=== PATIENT | female | born 1970 | race Caucasian/White ===

== ENCOUNTER → 2024-10-07 | Outpatient (CLI) | payer MEDICARE, MEDICAID, SELFPAY ==
--- NOTE | 2024-10-07 11:00 | XR_ITS ---
Examination: PA lateral chest 2 views TECHNIQUE: Upright PA lateral chest 2 views Exam date and time: October 07, 2024 1105 hours INDICATIONS: Coughing congestion beginning 3 weeks ago. FINDINGS: Normal heart size No pneumonia or pulmonary edema Moderate osteopenia IMPRESSION: No current pneumonia
== END | disposition home or self-care (01) ==
LOC: CDIM 10:56
PROVIDERS: PCP Family Medicine; Referring Provider Nurse Practitioner Family; Visit Provider Nurse Practitioner Family
DX: R05.9 Cough, unspecified (principal); R09.89 Other specified symptoms and signs involving the circulatory and respiratory systems; J44.1 Chronic obstructive pulmonary disease with (acute) exacerbation
CPT/HCPCS: 71046

== ENCOUNTER 2024-12-27 10:28 | Outpatient (RCR) | payer MEDICARE, MEDICAID, SELFPAY ==
--- NOTE | 2024-12-27 13:23 | CTCFLWUP_ITS ---
Patient: JOSSIE COCHRAN : 1970 Page 2 of 2 FOLLOW UP NOTE DATE OF SERVICE: 12/27/2024 NAME: JOSSIE COCHRAN ACCOUNT: [id number] : 1970 AGE: 54 INTERVAL HISTORY: No new complains ONCOLOGY HISTORY: DIAGNOSIS: Toxic liver disease with hepatitis, not elsewhere classified [ICD10] K71.6 HISTORY OF PRESENT ILLNESS: PREVIOUS NOTE: Jossie Cochran is a 54-year-old ENG speaking female with history of [place], cirrhosis of the liver, hepatomegaly and splenomegaly is referred to hematology clinic for thrombocytopenia. Ms. Cochran also gets followed at [facility] for her cirrhosis of the liver. Ms. Cochran was initially informed about thrombocytopenia about 2 years ago. According to Ms. Cochran she never had significant nosebleeds, gum bleeds or blood in the urine or stool. 03/05/2018: Hepatitis panel negative. 09/27/2018: Platelet count 88,000, WBC 5.7, ANC 3.6, hemoglobin 14.8, MCV 87. 04/20/2019: Platelet count 104,000, WBC 5.1, ANC 3.0, hemoglobin 13.6, MCV 92. 05/31/2020: Platelet count 113,000, WBC 5.3, ANC 3.4, hemoglobin 14.2, MCV 88. 05/20/2021: Platelet count 100,000, WBC 5.4, ANC 3.6, hemoglobin 14.1 02/27/2022: CT scan of the abdomen and pelvis with and without contrast 06/01/2022: Platelet count 89,000, WBC 7.0, ANC 4.8, hemoglobin 13.2. 01/09/2023: Colonoscopy screening, hemorrhoids, repeat in 5 to 10 years, Dr. Lin, GI 06/18/2023: Platelet count 83,000, WBC 4.1, ANC 2.6, hemoglobin 14.9, MCV 90. 02/12/2024: Platelet count 88,000, WBC 3.0, ANC 1.8, hemoglobin,12.7 MCV 85 08/19/2024: Platelets 91,000, WBC 3.8, ANC 2.4, hemoglobin 13.5, MCV 92 OTHER MEDICAL HISTORY/CONDITIONS: DM 24YRS TOTAL HIGH CHOLESTEROL BIPOLAR 1989 NON-ALCOHLIC CIRRHOSIS 2006 HYSTERECTOMY 2010 CHOLECYSTECTOMY 1999 FAMILY HISTORY: Patient?denies?family?cancer?history. 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 albuterol - 90 mcg/actuation As directed 2. AnafraniL - 50 mg 2 Capsule Daily 3. aspirin - 81 mg 1 tab Daily 4. atorvastatin - 80 mg 1 tab Daily 5. buPROPion HCl - 100 mg 1 tab Daily 6. Claritin - 10 mg 1 tab Daily 7. cloZAPine - 100 mg 2 tab Daily 8. docusate sodium - 100 mg 1 tab Daily 9. lactulose - 10 gram/15 mL (15 mL) As directed 10. lisinopril - 10 mg 1 tab Daily 11. lithium carbonate - 300 mg 1 tab Twice a Day 12. loratadine - 10 mg 1 tab Daily 13. PriLOSEC - 20 mg 1 Capsule Daily 14. propranolol - 10 mg 2 tab Daily 15. sertraline - 100 mg 1 tab Daily 16. Singulair - 10 mg 1 tab Daily 17. Trelegy Ellipta - 100-62.5-25 mcg 1 As directed Medications Last Reconciled by Kari Erickson MA on 12/27/2024 ALLERGIES: erythromycin REVIEW OF SYSTEMS: A complete 14-point review of systems was performed and is negative except as noted in interval history. PHYSICAL EXAMINATION: VITAL SIGNS: PAIN: 0 - No pain ECOG Performance Status: 0 - Asymptomatic and fully active GENERAL APPEARANCE: Appears well, in no apparent distress, appropriately interactive. HEENT: Normocephalic, no temporal wasting, normal conjunctiva, no scleral icterus, normal hearing, lips without lesions, neck normal range of motion. CARDIOVASCULAR: Not assessed. PULMONARY: Normal respiratory effort, no respiratory distress or use of accessory muscles, speaking in full sentences, no tachypnea. EXTREMITIES: No pedal edema or cyanosis. SKIN: Normal skin appearance. NEUROLOGIC: Alert and oriented x4. PSHYCHIATRIC: Appropriate affect, mood normal, behavior normal, intact thought and speech. 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 I spent a total of 50 minutes on this patient?s care on the day of their visit excluding time spent related to any billed procedures. This time includes time spent with the patient as well as time spent documenting in the medical record, reviewing patients records and tests, obtaining history, placing orders, communicating with other healthcare professionals, counseling the patient, family or caregiver, and/or care coordination for the diagnoses above. Electronically Signed by: Ruiz Llamas MD T: 1:21 PM CC: PCP: Rios Vyas Referring: Rios Vyas This document was completed utilizing speech recognition software. Grammatical errors, random word insertions, pronoun errors, and incomplete sentences are an occasional consequence of this system due to software limitations, ambient noise, and hardware issues. Any formal questions or concerns about the content, text or information contained within the body of this dictation should be directly addressed to the provider for clarification.
== END 2025-01-14 23:59 | disposition home or self-care (01) ==
LOC: SCTC 10:28
PROVIDERS: PCP Family Medicine; Referring Provider Family Medicine; Visit Provider Internal Medicine Hematology & Oncology
DX: D69.6 Thrombocytopenia, unspecified (principal)
CPT/HCPCS: 99212; G0463

== ENCOUNTER 2025-01-30 18:17 | Inpatient (IN) | payer MEDICARE, MEDICAID, SELFPAY ==
--- NOTE | 2025-01-30 18:27 | XR_ITS ---
Examination: CT brain head without contrast. 2-D sagittal coronal reconstructions Date and time of exam:January 30, 2025 at 1831 hrs. Indications: Stroke alert, onset focal neurologic deficit today CTDI: vol (mGy):50.6 DLP: (mGycm):1039 Technique: Multiple CT axial sections of the brain have been obtained, 5 mm slice thickness. Contrast has not been administered. 2-D sagittal, coronal reconstructions have been obtained Low dose protocols were performed. One or more of the following dose reduction techniques were used; automated exposure control, adjustment of the mA and/or KV according to patient size, use of iterative reconstruction technique. Findings: No significant ventricular enlargement. Intra-axial or extra-axial hemorrhage density is not seen. No mass effect or midline shift Basal cisterns are not remarkable. Fourth ventricle is midline. Cranial vault intact. Impression: Negative for acute hemorrhage, mass effect or midline shift As clinically warranted, brain MRI follow-up would best assess for demyelinating disease, acute ischemic change
[2025-01-30 18:43] VITALS: PULSE 98
--- NOTE | 2025-01-30 18:43 | EKG_ITS ---
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
--- NOTE | 2025-01-30 18:43 | XR_ITS ---
Examination: CTA carotids with intravenous contrast CTA brain, head with intravenous contrast. 2-D sagittal, coronal reconstructions. 3-D reconstructions. Exam date and time: January 30, 2025 1932 hrs. Indications: Stroke alert today, onset altered mental status beginning this morning CTDI: vol (mGy) 26.2 DLP: (mGycm) 452 Technique: Multiple CTA axial brain, head carotid images post intravenous contrast injection 75 cc, Isovue-370. 2-D sagittal, coronal reconstructions. 3-D reconstructions, 3-D post processing including vascular maximum intensity projection images. Low dose protocols were performed. One or more of the following dose reduction techniques were used; automated exposure control, adjustment of the mA and/or KV according to patient size, use of iterative reconstruction technique. Findings: Mild enlargement right thyroid lobe No thoracic aortic aneurysm dilatation Main pulmonary artery segment 30 mm No visualized pulmonary artery filling defects Soft parenchymal opacity in the right upper lobe axial image 213, consider pneumonia No common carotid carotid bifurcation or internal carotid artery significant stenoses Dominant left vertebral artery with no critical stenoses Intracranial vertebral arteries basilar artery posterior cerebral branches fill with no large vessel occlusions Juxtasellar supraclinoid portions of the internal carotid arteries do not exhibit significant calcification no stenoses M1 segments middle cerebral arteries middle cerebral artery trifurcation vessels anterior cerebral arteries demonstrate no large vessel occlusions or thrombus Impression: Suspicious for mild pneumonia right upper lobe No significant neck arterial stenoses No cerebral large vessel arterial occlusions or thrombus
--- NOTE | 2025-01-30 18:48 | PD.TNEURO ---
Tele Neuro Consultation Consultation Date 01/30/25 Consultation Narrative [facility] Consult [facility] Patient Name:???Jossie Caro Date of :???1970 Date of Service:???01/30/2025 18:24:47 Diagnosis:?G93.49 - Encephalopathy Multifactorial Impression: ?1. Altered Mental Status and Dysarthria: ? - Admit for further workup ? - Order lab works (CBC, CMP, UA, UDS, TSH, LDL, A1C) ? - Order vessel imaging: CTA or MRA of head and neck ? - Order 2D echocardiogram if not completed within the last 3 months ? - Consult PT, OT, and ORCHESTRA TEACHER for rehab potential ? - Maintain euthymia, euglycemia, eunatremia, and euvolemia ? - Monitor for any changes in neurological status ? ?2. History of Cerebrovascular Accident (CVA): ? - Continue aspirin for secondary stroke prevention ? - Re-initiate statin therapy if not currently taking ? - Maintain normal blood pressure; no need for permissive hypertension ? ?3. Bipolar Disorder: ? - Maintain current psychiatric medications (not specified in transcript) ? - Monitor for any changes in mood or behavior during admission ? ?Note: 54-year-old female with history of CVA and bipolar disorder presenting with 2-3 day history of confusion, slurred speech, and leaning to the left. On examination, no focal neurological deficits were appreciated. Low suspicion for a new vascular etiology or acute stroke. Our recommendations are outlined below. Recommendations: ? Stroke/Telemetry Floor ? Neuro Checks ? Bedside Swallow Eval ? DVT Prophylaxis ? IV Fluids, Normal Saline ? Head of Bed 30 Degrees ? Euglycemia and Avoid Hyperthermia (PRN Acetaminophen) Sign Out: ? Discussed with Emergency Department Provider Advanced Imaging: Advanced Imaging Deferred because: Non-disabling symptoms as verified by the patient; no cortical signs so not consistent with LVO Metrics: Last Known Well: Unknown Dispatch Time: 01/30/2025 18:24:47 Arrival Time: 01/30/2025 18:27:00 Initial Response Time: 01/30/2025 18:25:22Symptoms: confusion, slurred speech, and leaning towards the left. Initial patient interaction: 01/30/2025 18:33:29 NIHSS Assessment Completed: 01/30/2025 18:36:35Patient is not a candidate for Thrombolytic. Thrombolytic Medical Decision: 01/30/2025 18:38:14Patient was not deemed candidate for Thrombolytic because of following reasons: LKW outside 4.[address] head showed no acute hemorrhage or acute core infarct. Primary Provider Notified of Diagnostic Impression and Management Plan on: 01/30/2025 18:45:47 History of Present Illness:Patient is a 54 year old Female. Patient was brought by private transportation with symptoms of confusion, slurred speech, and leaning towards the left. Patient is a 54-year-old woman presenting with a 2-3 day history of confusion, slurred speech, and leaning towards the left. The patient has a history of CVA (cerebrovascular event) last year and bipolar disorder. The patient reports that her symptoms started approximately 2-3 days ago and have been persistent since onset. She denies any recent illnesses, ill contacts, or changes in her medications. Past Medical History: ?Hyperlipidemia ?Stroke Medications: No Anticoagulant use? Antiplatelet use:?Yes?ASA 81mg Reviewed EMR for current medications Allergies:? Reviewed Social History: Smoking: Former Alcohol Use: No Drug Use: No Family History: There is no family history of premature cerebrovascular disease pertinent to this consultation ROS : 14 Points Review of Systems was performed and was negative except mentioned in HPI. Past Surgical History: There Is No Surgical History Contributory To Today?s Visit Examination: BP(133/86),?Pulse(91), 1A: Level of Consciousness - Alert; keenly responsive?+ 0 1B: Ask Month and Age - Both Questions Right?+ 0 1C: Blink Eyes & Squeeze Hands - Performs Both Tasks?+ 0 2: Test Horizontal Extraocular Movements - Normal?+ 0 3: Test Visual Wesley - No Visual Loss?+ 0 4: Test Facial Palsy (Use Grimace if Obtunded) - Normal symmetry?+ 0 5A: Test Left Arm Motor Drift - No Drift for 10 Seconds?+ 0 5B: Test Right Arm Motor Drift - No Drift for 10 Seconds?+ 0 6A: Test Left Leg Motor Drift - No Drift for 5 Seconds?+ 0 6B: Test Right Leg Motor Drift - No Drift for 5 Seconds?+ 0 7: Test Limb Ataxia (FNF/Heel-Winston) - No Ataxia?+ 0 8: Test Sensation - Normal; No sensory loss?+ 0 9: Test Language/Aphasia - Normal; No aphasia?+ 0 10: Test Dysarthria - Mild-Moderate Dysarthria: Slurring but can be understood?+ 1 11: Test Extinction/Inattention - No abnormality?+ 0 NIHSS Score:?1 NIHSS Free Text :?Stable station, stance and gait Pre-Morbid Modified Mayank Scale:0 Points = No symptoms at all Spoke with :?Dr. Schulz This consult was conducted in real time using interactive audio and video technology. Patient was informed of the technology being used for this visit and agreed to proceed. Patient located in hospital and provider located at home/office setting. Patient is being evaluated for possible acute neurologic impairment and high probability of imminent or life-threatening deterioration. I spent total of 35 minutes providing care to this patient, including time for face to face visit via telemedicine, review of medical records, imaging studies and discussion of findings with providers, the patient and/or family. Dr Hiram Marshall [facility] For Inpatient follow-up with [facility] physician please call [facility] at . As we are not an outpatient service for any post hospital discharge needs please contact the hospital for assistance. If you have any questions for the [facility] physicians or need to reconsult for clinical or diagnostic changes please contact us via [facility] at .
[2025-01-30 18:50] VITALS: BP 111/74; PULSE 97; RESP 18; TEMP 37.1; O2SAT 98
[2025-01-30 18:52] VITALS: BMI 34.9
[2025-01-30 18:57] LABS: Basophils % (Auto) 1 % (0-2.5); Eosinophils # (Auto) 0.1 Thou/mm3 (0.0-0.5); Eosinophils % (Auto) 3 % (0-10); Hematocrit 40.8 % (36.0-46.0); Hemoglobin 13.2 g/dL (12.0-16.0); Immature Granulocytes % (Auto) 0 % (0-0); Immature Granulocytes Auto 0.01 Thou/mm3 (0.00-0.00); Lymphocytes % (Auto) 22 % (10-50); Mean Corpuscular HGB Conc 32.4 g/dl (31.0-37.0); Mean Corpuscular Hemoglobin 27.6 pg (25.0-35.0); Mean Corpuscular Volume 85 fL (80-100); Monocytes # (Auto) 0.2 Thou/mm3 (0.0-0.8); Monocytes % (Auto) 5 % (0-12); Neutrophils % (Auto) 69 % (37-80); Nucleated Red Blood Cell % 0 /100 WBC (0); Platelet Count 97 Thou/mm3 (140-440); RDW Standard Deviation 43.2 fL (36.4-46.3); Red Blood Count 4.79 Miln/mm3 (4.00-5.20); White Blood Count 4.4 Thou/mm3 (3.6-11.0)
[2025-01-30 19:11] LABS: Partial Thromboplastin Time 27.6 Seconds (22.0-36.0); Prothrombin Time 11.4 Seconds (9.0-12.2)
[2025-01-30 19:18] LABS: B-Type Natriuretic Peptide < 20 pg/mL (0-100)
[2025-01-30 19:21] LABS: Alanine Aminotransferase 40 U/L (10-49); Albumin, Serum 4.7 gm/dL (3.5-5.0); Alcohol, Blood Medical < 10.0 mg/dL (0-10.0); Alkaline Phosphatase 109 U/L (46-116); Anion Gap 10 (7-16); Aspartate Amino Transferase 31 U/L (0-34); BUN/Creatinine Ratio 10 Ratio (12-20); Bilirubin,Total 0.5 mg/dL (0.3-1.2); Blood Urea Nitrogen 12 mg/dL (9-23); Calcium 10.4 mg/dL (8.3-10.6); Calcium (Corrected) 10.4 mg/dL (8.5-10.1); Carbon Dioxide 25.8 mMol/L (20.0-31.0); Chloride 98 mMol/L (98-107); Creatinine (Component) 1.2 mg/dL (0.6-1.3); Estimated Creatinine Clearance 62.6 mL/min (>60); Globulin 2.4 gm/dL (2.3-3.5); Glucose 295 mg/dL (74-106); Magnesium 1.6 mg/dL (1.6-2.6); Osmolality,Calculated 278 (275-295); Potassium 3.6 mMol/L (3.4-5.1); Sodium 134 mMol/L (136-145); Total Protein 7.1 gm/dL (5.7-8.2); Troponin I < 0.002 ng/mL (0.0-0.045); eGFR 54 See Note
[2025-01-30 20:03] VITALS: BP 141/79; PULSE 96; PULSE 97; RESP 18; RESP 97; TEMP 37; O2SAT 97
--- NOTE | 2025-01-30 20:04 | PD.EDAMS ---
Altered Mental Status RME/HPI General Chief Complaint: Altered Mental Status Stated Complaint: FEELING OFF, CONFUSED Time Seen by Provider: 01/30/25 18:43 Source: patient and family Arrival date/time: 01/30/25 18:17 Mode of arrival: ambulatory Limitations: no limitations RME / HPI RME / HPI narrative: Dr. Xie?s Main ED Evaluation: 54-year-old female with a history of cerebrovascular accident (CVA) last year and bipolar disorder presents with a 2-3 day history of confusion, slurred speech, and leftward leaning. Symptoms have been persistent since onset, without improvement. She denies recent illness, exposure to sick contacts, or any changes in her medication regimen. Patient reports 3 prior episodes of stroke and comes in for further evaluation. Related Data Home Medications ?Medication ?Instructions ?Recorded ?Confirmed blood sugar diagnostic (True 05/20/21 01/08/23 Metrix Glucose Test Strip) clozapine 100 mg tablet 200 mg PO DAILY 05/20/21 11/15/23 fluticasone furoate 100 2 inh inhalation [id number] PRN 05/20/21 01/08/23 mcg-vilanterol 25 mcg/dose Shortness Of Breath inhalation powder (Breo Ellipta) insulin aspart U-100 100 unit/mL 15 unit subcut DAILY 05/20/21 01/08/23 (3 mL) subcutaneous pen (Novolog FlexPen U-100 Insulin aspart) Held on 11/30/23. Instructions: Resume on 12/10/23. until seen by pcp albuterol sulfate 90 mcg/actuation 2 puff inhalation QID PRN Wheezing 05/03/22 01/08/23 aerosol inhaler clomipramine 75 mg capsule 75 mg PO DAILY 05/03/22 01/08/23 empagliflozin 25 mg-metformin ER 1 tab PO BID 05/03/22 01/08/23 1,000 mg tablet,extended release 24hr (Synjardy XR) semaglutide 0.25 mg or 0.5 mg (2 1 mg subcut QWEEK 05/03/22 01/08/23 mg/1.5 mL) subcutaneous pen injector (Ozempic) Held on 11/30/23. Instructions: Resume on 12/10/23. until seen by pcp lithium carbonate 300 mg 600 mg PO HS 01/07/23 01/08/23 tablet,extended release Previous Rx's ?Medication ?Instructions ?Recorded amiloride 5 mg tablet 5 mg PO QDAY #14 tabs 11/30/23 aspirin 81 mg tablet,delayed 81 mg PO QDAY cva #30 tabs 11/30/23 release atorvastatin 80 mg tablet 80 mg PO QPM CVA #30 tabs 11/30/23 insulin glargine 100 unit/mL (3 20 unit (0.2 mL) subcut BID dm #15 11/30/23 mL) subcutaneous pen (Lantus mL Solostar U-100 Insulin) lactulose 10 gram/15 mL oral 20 ml PO QDAY cirrhosis #473 mL 11/30/23 solution rifaximin 550 mg tablet 550 mg PO BID #60 tabs 11/30/23 sertraline 100 mg tablet 100 mg PO HS #30 tabs 11/30/23 amoxicillin 875 mg-potassium 1 tab PO Q12H #14 tabs 01/07/24 clavulanate 125 mg tablet doxycycline monohydrate 100 mg 100 mg PO BID #14 caps 01/07/24 capsule Allergies Allergy/AdvReac Type Severity Reaction Status Date / Time erythromycin base AdvReac Severe Vomiting Verified 01/30/25 18:19 Review of Systems Review of Systems Systems Reviewed: All systems reviewed, normal except as documented Past Medical History Past Medical History NEUROLOGIC: Positive Neurological Disorders, Cerebrovascular Accident, Peripheral Neuropathy and Migraine; Negative Seizures CARDIAC: Positive Hypercholesterolemia; Negative Cardiac Disorders, Congestive Heart Failure, Edema, Cellulitis or Varicose Veins RESPIRATORY: Positive Emphysema and Pneumonia; Negative Chronic Obstructive Pulmonary Disease (COPD), Asthma, Tuberculosis or Sleep Apnea GASTROINTESTINAL: Positive Gastrointestinal Disorders, Cirrhosis and Gall Bladder Disease; Negative Hepatitis GENITOURINARY: Positive Genitourinary Disorders and Kidney Stones; Negative Renal Disease REPRODUCTIVE: Negative Previous Pregnancies MUSCULOSKELETAL: Positive Arthritis; Negative Musculoskeletal Disorders ENDOCRINE: Positive Endocrine Disorders and Diabetes Mellitus Type 2; Negative Diabetes Mellitus Type 1 HEMATOLOGIC: Positive Clotting Problems; Negative Blood Disorders or Sickle Cell Disease PSYCHO/SOCIAL: Positive Bipolar Disorder, Depression, Anxiety and Post Traumatic Stress Disorder OTHER HISTORY: Positive Hospitalization, MRSA and Chicken Pox; Negative Autoimmune Disease, Shingles, Falls, Blood Transfusions, Anesthesia Reactions, Chemotherapy, Radiation Therapy, Measles, Mumps or Cancer Family History FAMILY HISTORY: Positive Family Cardiac Disorders and Family Surgery; Negative Family Psychiatric Problems, Family Respiratory Disorders, Family Gastrointestinal Problems, Family Cancer or Family Anesthesia Reaction Surgical History SURGICAL: Positive Nose Surgery, Abdominal Surgery and Hysterectomy; Negative Pacemaker Social History SMOKING STATUS: Never smoker SUBSTANCE USE: does not use ED Exam Narrative Physical exam: GENERAL APPEARANCE: alert and oriented x 4, well-developed, well-nourished, no acute distress VITALS: All vitals were reviewed and the pulse ox is 97% on room air, which is normal according to my interpretation. HEENT: Normocephalic, atraumatic; pupils equal, round, reactive to light; EOMI; mucous membranes pink, moist; oropharynx clear NECK: Supple LUNGS: CTABL; no wheezes, no rales, no rhonchi HEART: Regular rate, regular rhythm; normal S1, S2; no murmurs ABDOMEN: non distended; normal BS; soft, no tenderness, no guarding, no rebound; no masses, no organomegaly, no hernia BACK: no CVA tenderness EXTREMITIES: atraumatic; no edema NEUROLOGIC: awake; alert and oriented x4; cranial nerves II-XII grossly intact; no focal sensory or motor deficits PSYCHIATRIC: appropriate mood and affect SKIN: warm, dry, normal color; no rashes Cerebellar exam: no intention tremor, staccato speech, dysmetria or dysdiadochokinesia Per teleneuro consult, Examination: BP(133/86),?Pulse(91), 1A: Level of Consciousness - Alert; keenly responsive?+ 0 1B: Ask Month and Age - Both Questions Right?+ 0 1C: Blink Eyes & Squeeze Hands - Performs Both Tasks?+ 0 2: Test Horizontal Extraocular Movements - Normal?+ 0 3: Test Visual Wesley - No Visual Loss?+ 0 4: Test Facial Palsy (Use Grimace if Obtunded) - Normal symmetry?+ 0 5A: Test Left Arm Motor Drift - No Drift for 10 Seconds?+ 0 5B: Test Right Arm Motor Drift - No Drift for 10 Seconds?+ 0 6A: Test Left Leg Motor Drift - No Drift for 5 Seconds?+ 0 6B: Test Right Leg Motor Drift - No Drift for 5 Seconds?+ 0 7: Test Limb Ataxia (FNF/Heel-Winston) - No Ataxia?+ 0 8: Test Sensation - Normal; No sensory loss?+ 0 9: Test Language/Aphasia - Normal; No aphasia?+ 0 10: Test Dysarthria - Mild-Moderate Dysarthria: Slurring but can be understood?+ 1 11: Test Extinction/Inattention - No abnormality?+ 0 NIHSS Score:?1 NIHSS Free Text :?Stable station, stance and gait Pre-Morbid Modified Mayank Scale:0 Points = No symptoms at all General Limitations: Present no limitations Course Quality Measures Suspected type of Stroke: Unknown at this time Last know well: unknown Tenecteplase given: Reason(s) TPA not given: Outside the time window not given stroke Orders Category Date Time Status Bedside Blood Glucose NOW Care 01/30/25 18:43 Active Director Credit Risk NOW Care 01/30/25 18:43 Active Continuous Pulse Oximetry NOW Care 01/30/25 18:43 Completed EKG (ED ONLY) *Do not use* NOW Care 01/30/25 18:43 Completed In and Out Catheter NEEDED Care 01/30/25 18:43 Active Insert IV NOW Care 01/30/25 18:43 Active NIH Stroke Scale now Care 01/30/25 18:43 Active NPO NOW Care 01/30/25 18:43 Active Neuro Check Q30MIN Care 01/30/25 18:43 Active Nurse Swallow Screen x1 Care 01/30/25 18:[address] angio stroke protocol Stat Exams 01/30/25 18:[address] stroke protocol Stat Exams 01/30/25 18:27 Completed EKG (ED Only) Stat Exams 01/30/25 18:43 Draft Alcohol, Blood Medical Stat Lab 01/30/25 18:48 Completed B-Type Natriuretic Peptide Stat Lab 01/30/25 18:48 Completed CBC Stat Lab 01/30/25 18:48 Completed Comprehensive Metabolic Panel Stat Lab 01/30/25 18:48 Completed Drug Screen,Urine Stat Lab 01/30/25 20:08 Completed HCG Titer if Positive Stat Lab 01/30/25 18:48 Completed Magnesium Stat Lab 01/30/25 18:48 Completed Partial Thromboplastin Time Stat Lab 01/30/25 18:48 Completed Prothrombin Time with INR Stat Lab 01/30/25 18:48 Completed Troponin I Stat Lab 01/30/25 18:48 Completed Urinalysis Stat Lab 01/30/25 20:08 Completed Urine Culture Stat Lab 01/30/25 20:08 Received Oxygen Delivery NOW RT 01/30/25 18:43 Active Vital Signs Vital signs: Vital Signs Pulse Rate 98 01/30/25 18:43 Altered Mental Status MDM Narrative MDM Narrative:: 54-year-old female with a history of CVA (last year) and bipolar disorder presenting with a 2-3 day history of confusion, slurred speech, and leftward leaning. -CT Brain was negative for acute hemorrhage, mass effect, or midline shift. -CTA Carotids & Brain had no significant stenoses or large vessel occlusions. -EKG: Normal sinus rhythm with right bundle branch block, no STEMI or acute ischemic changes, according to my interpretation. No thrombolysis indicated as LKW exceeds 4.5-hour window. Tele-Neurology Consultation: No significant findings suggesting an acute vascular event. Refer to teleneuro consultation. Disposition: Admit for continued monitoring, neurological checks, MRI, serial re-examinations and supportive care. [id number] Case d/w hospitalist team who accepts patient for admission. Scribe Attestation: I, Kavon Ribera, am scribing for and in the presence of Dr. Xie. Provider Notation: Although this document has been carefully reviewed, there may still be some phonetic and other typographical errors. These errors are purely grammatical due to imperfections in the software program and should not be construed in any way to compromise the substance of the patient's medical care during this visit. Patient data External records reviewed:: [facility] previous records Clinical information provided by:: patient and family Social determinants that could affect healthcare access:: none Patient has the following chronic illnesses:: see PMH How is presenting disease/condition affected by chronic disease/condition?: uneffected by Evaluation data The following diagnostics were reviewed and interpreted by me:: lab results, radiology exam(s) and EKG tracing(s) Lab and/or radiology exams considered but not ordered:: na Interpretation Summary: I personally reviewed the radiology data and agree with the radiologist's interpretation. Examination: CT brain head without contrast. Date and time of exam:January 30, 2025 at 1831 hrs. Indications: Stroke alert, onset focal neurologic deficit today Findings: No significant ventricular enlargement. Intra-axial or extra-axial hemorrhage density is not seen. No mass effect or midline shift Basal cisterns are not remarkable. Fourth ventricle is midline. Cranial vault intact. Impression: Negative for acute hemorrhage, mass effect or midline shift As clinically warranted, brain MRI follow-up would best assess for demyelinating disease, acute ischemic change Dictated By: Marc Rodriguez MD Examination: CTA carotids with intravenous contrast CTA brain, head with intravenous contrast. Exam date and time: January 30, 2025 1932 hrs. Indications: Stroke alert today, onset altered mental status beginning this morning Findings: Mild enlargement right thyroid lobe No thoracic aortic aneurysm dilatation Main pulmonary artery segment 30 mm No visualized pulmonary artery filling defects Soft parenchymal opacity in the right upper lobe axial image 213, consider pneumonia No common carotid carotid bifurcation or internal carotid artery significant stenoses Dominant left vertebral artery with no critical stenoses Intracranial vertebral arteries basilar artery posterior cerebral branches fill with no large vessel occlusions Juxtasellar supraclinoid portions of the internal carotid arteries do not exhibit significant calcification no stenoses M1 segments middle cerebral arteries middle cerebral artery trifurcation vessels anterior cerebral arteries demonstrate no large vessel occlusions or thrombus Impression: Suspicious for mild pneumonia right upper lobe No significant neck arterial stenoses No cerebral large vessel arterial occlusions or thrombus Dictated By: Marc Rodriguez MD Medications / Prescriptions Medications or Prescriptions considered but not ordered:: na Medication administrations:: Medication Administration History Acetaminophen (Acetaminophen 325 Mg Tablet) 650 mg PO Q6H PRN PRN Reason: Fever >101.5 Stop: 03/01/25 22:20 Acetaminophen (Acetaminophen 325 Mg Tablet) 650 mg PO Q6H PRN PRN Reason: PAIN SCALE 1-3 (mild Stop: 03/01/25 22:26 Albuterol/Ipratropium (Albuterol/Ipratropium (Duoneb) Rt Nohemi 3 Ml Nebu) 3 ml INH Q4HRRT PRN PRN Reason: wheezing Stop: 03/01/25 22:59 Aspirin (Aspirin Ec 81 Mg Tabec) 81 mg PO QDAY RAVINDRA Stop: 03/02/25 08:59 Atorvastatin Calcium (Atorvastatin Calcium 20 Mg Tablet) 40 mg PO HS RAVINDRA Stop: 03/02/25 20:59 Bisacodyl (Bisacodyl 5 Mg Tabec) 10 mg PO QDAY PRN; Protocol PRN Reason: CONSTIPATION Stop: 03/01/25 22:20 Dextrose (Dextrose 50%-Water Inj 50 Ml Syringe) 25 ml IV Q15MIN PRN PRN Reason: BG 50-70 responsive npo pt Stop: 03/01/25 22:35 Dextrose (Dextrose 50%-Water Inj 50 Ml Syringe) 50 ml IV Q15MIN PRN PRN Reason: BG <50 OR BG <70 & pt unresponsive Stop: 03/01/25 22:35 Glucagon (Glucagon Inj 1 Mg Vial) 1 mg IM Q15MIN PRN PRN Reason: BG <70, and no IV access Heparin Sodium (Porcine) (Heparin Sod Inj 5000 Unit/Ml Vial) 5,000 unit SC Q8HR RAVINDRA Stop: 02/13/25 22:29 Hydralazine HCl (Hydralazine Inj 20 Mg/Ml Vial) 10 mg IV Q2H PRN PRN Reason: SBP >180mmHg Stop: 03/01/25 22:44 Insulin Glargine (Insulin Glargine (Lantus) 5 Unit/0.05 Ml (Per 5 Units)) 10 unit SC QDAY RAVINDRA Stop: 03/02/25 08:59 Insulin Human Lispro (Insulin Lispro (Admelog) 1 Unit/0.01 Ml Unit) 0 unit SC AC RAVINDRA; Protocol Stop: 03/02/25 07:29 Ondansetron HCl (Ondansetron Inj 2 Mg/Ml Inj 2 Ml) 4 mg IV Q6H PRN; Protocol PRN Reason: NAUSEA OR VOMITING Stop: 03/01/25 22:20 Oxycodone/Acetaminophen (Oxycodone/Apap 5/325 Tablet) 1 tab PO Q6H PRN PRN Reason: PAIN SCALE 4-6 (Moderate Stop: 02/04/25 22:26 Pantoprazole Sodium (Pantoprazole Inj 40 Mg Vial) 40 mg IVP QDAY RAVINDRA Stop: 03/02/25 08:59 as above Consultations Consultation(s) initiated? (list below): Yes Consultation #1 (Physician, Specialty, Details): Hospitalist team was made aware of the patient?s HPI, PMHx, lab and/or radiology results. Discussed treatment plan. Accepts patient for admission. Diagnosis Differential diagnosis altered mental status: other (Ischemic CVA, hemorrhagic CVA, encephalitis, and meningitis) Most likely diagnosis given after review of the tests above:: TIA Admission Indicated Admission indicated?: indicated Admission Request Was there a request for admission?: Yes Admission Attestation Admission request attestation: Discussed case with [] from Hospitalist service regarding admission. Discussed patients ED course, exam findings, labs, and radiology results. The Hospitalist [agrees,declines] to accept the patient for admission. Disposition Plan Disposition Plan: Admit Critical Care Time Critical Care Time Critical Care Time: Yes Total Critical Care Time (min.): 60 Attestation: The high probability of sudden, clinically significant deterioration in the patient?s condition required the highest level of my preparedness to intervene urgently. ? The services I provided to this patient were to treat and/or prevent clinically significant deterioration. Services included the following: chart data review, reviewing nursing notes and/or old charts, documentation time, [employer] consultant collaboration regarding findings and treatment options, medication orders and management, direct patient care, vital sign assessments and ordering, interpreting and reviewing diagnostic studies and lab tests. ? Aggregate critical care time includes only time during which I was engaged in work directly related to the patient?s care, as described above, whether at bedside or elsewhere in the Emergency Department. It did not include time spent performing other reported procedures or the services of residents, students, nurses or physician assistants. Discharge Plan Plan Patient Disposition: Admit Acute Care w/in Hospital Problem List Clinical Impression: TIA (transient ischemic attack)
[2025-01-30 20:13] LABS: Collection Type, Urine Clean Catch; Squamous Epithelial Cell,Urine 0 /hpf (0-5)
[2025-01-30 20:19] LABS: Bilirubin,Urine Negative (Negative); Blood,Urine Negative (Negative); Clarity,Urine Clear (Clear/Hazy); Color,Urine Colorless (Lt Yel-Yel); Glucose, Urine Negative (Negative); Ketones,Urine Negative (Negative); Leukocyte Esterase,Urine Positive (Negative); Nitrite,Urine Negative (Negative); PH,Urine 6.5 (5.0-7.0); Protein,Urine Negative (Neg - Trace); RBC,Urine 2 /hpf (0-3); Specific Gravity,Urine 1.024 (1.001-1.035); Urobilinogen,Urine Negative mg/dL (0.0-1.0); WBC,Urine 3 /hpf (0-5)
[2025-01-30 20:24] LABS: Amphetamine/Methamp Scrn,U Negative (Negative); Barbiturate Screen,Urine Negative (Negative); Benzodiazepines Screen,Urine Negative (Negative); Benzoylecgonine Screen, Ur Negative (Negative); Fentanyl Screen,Urine Negative (Negative); Opiate Screen,Urine Negative (Negative); THC Screen,Urine Negative (Negative)
[2025-01-30 20:33] LABS: HCG Titer if Positive Negative
--- NOTE | 2025-01-30 22:33 | ESHP_ITS ---
<Statement entered by Negro Nguyen MD - 02/01/25 23:43> 54-year-old female with multiple comorbidities including hypertension, hyperlipidemia with type 2 diabetes mellitus with ischemic CVA with unknown deficits and bipolar disorder who presented with altered mentation and left- sided weakness stroke alert was activated. Patient was evaluated by telemetry neuro and underwent CT head with no acute intracranial abnormality and CT angiogram with no evidence of any large vessel occlusion. Teleneuro recommended admitting patient for stroke workup. I reviewed above note and agree with findings and plans. I have also personally examined the patient with medicine team and went over assessment and plan with medical team including college intern and resident physician. Documentation for date of: 01/30/25 HPI History of Present Illness Chief complaint: Confusion and slurred speech for 3 days History of present illness: HPI:A 54-year-old female patient with past medical history of CVA, bipolar disorder, cirrhosis secondary to steatosis, hyperlipidemia, diabetes mellitus, came to the ED due to history of 3 days of intermittent confusion and worsening numbness weakness in left side, she mentions that she has been having difficulty to walk because of the weakness and also she is always leaning to the left side as when she laid down and cannot straighten her body. As per her partner she mentions that she has noticed for the past few months she has been having intermittent aphasia in which she has difficulty expressing what she needs and what she want, she also mentions that sometimes she becomes confused however she is still oriented during these episodes. They denied any blurry vision, tinnitus, however they mentioned that she has difficulty swallowing and sometimes she chokes when she eats. She mentioned that she spoke with her doctor and he mentions that it could be from a thyroid nodule that was found in her thyroid gland. Patient denied any fever or chills, denied any heart issues, denied any abdominal pain diarrhea or constipation. Home medications: Pending med reconciliation ED course: On presentation patient was vital stable except for mild tachycardia 98, her pertinent labs showed hemoglobin of 11.5, WBC 3.4, coagulation panel within normal limits, CMP was significant for potassium of 3.5, glucose 295, lithium level was within normal limits, U-Tox was negative. Brain CT scan and head and neck CT angio were negative for any hemorrhage or mass effect and negative for any large vessel occlusion respectively. Teleneurologist was consulted and she recommended to do an cephalopathy workup which most likely multifactorial, and recommended no need for permissive hypertension. PMH: As above Social hx: Alcohol: Denied Tobacco: Denied Illicit drugs: Denied Allergies: Erythromycin Review of Systems Review of Systems Systems Reviewed: All systems reviewed, normal except as documented Exam Vital Signs Temp Pulse Resp BP Pulse Ox O2 Del Method 98.6 F 97 18 141/79 H 97 Room Air 01/30/25 20:03 01/30/25 20:03 01/30/25 20:03 01/30/25 20:03 01/30/25 20:03 01/30/25 20:03 Narrative Exam GEN: AOx3, able to speak full sentences however slurred speech HEENT: NC/AC, PERRLA, oral mucosa moist, neck supple CVS: RRR, S1-S2 present, no murmurs appreciated RESP: CTAB GI: soft, mildly distended, non tender, NBS MSK: able to move all 4 limbs, no lower extremity edema SKIN: warm and dry WIRE WINDER: CN II-XII and Sensation grossly intact, no pronator drift, no nystagmus Results: Labs 01/31/25 04:51 01/31/25 04:51 Labs: Short CBC 01/30/25 Range/Units 18:48 WBC 4.4 (3.6-11.0) Thou/mm3 Hgb 13.2 (12.0-16.0) g/dL Hct 40.8 (36.0-46.0) % Plt Count 97 L (140-440) Thou/mm3 BMP 01/30/25 18:48 Sodium 134 L Potassium 3.6 Chloride 98 Carbon Dioxide 25.8 BUN 12 Creatinine 1.2 Glucose 295 H Calcium 10.4 Cardiac Enzymes 01/30/25 Range/Units 18:48 Troponin I < 0.002 (0.0-0.045) ng/mL Liver Function 01/30/25 Range/Units 18:48 Total Bilirubin 0.5 (0.3-1.2) mg/dL AST 31 (0-34) U/L ALT 40 (10-49) U/L Alkaline Phosphatase 109 (46-116) U/L Albumin 4.7 (3.5-5.0) gm/dL Urine 01/30/25 Range/Units 20:08 Urine Color Colorless A (Lt Yel-Yel) Urine Clarity Clear (Clear/Hazy) Urine pH 6.5 (5.0-7.0) Ur Specific [place] 1.024 (1.001-1.035) Urine Protein Negative (Neg - Trace) Urine Glucose (UA) Negative (Negative) Quality Measures Quality Measures VTE prophylaxis Medications Home Medications and Allergies Home Medications ?Medication ?Instructions ?Recorded ?Confirmed ?Type blood sugar diagnostic (True 05/20/21 01/08/23 Histor y Metrix Glucose Test Strip) clozapine 100 mg tablet 200 mg PO DAILY 05/20/21 History fluticasone furoate 100 2 inh inhalation [id number] PRN 05/20/21 01/08/23 History mcg-vilanterol 25 mcg/dose Shortness Of Breath inhalation powder (Breo Ellipta) insulin aspart U-100 100 unit/mL 15 unit subcut DAILY 05/20/21 01/08/23 History (3 mL) subcutaneous pen (Novolog FlexPen U-100 Insulin aspart) Held on 11/30/23. Instructions: Resume on 12/10/23. until seen by pcp albuterol sulfate 90 mcg/actuation 2 puff inhalation Q ID PRN Wheezing 05/03/22 01/08/23 History aerosol inhaler clomipramine 75 mg capsule 75 mg PO DAILY 05/03/22 History empagliflozin 25 mg-metformin ER 1 tab PO BID 05/03/22 01/08/23 History 1,000 mg tablet,extended release 24hr (Synjardy XR) semaglutide 0.25 mg or 0.5 mg (2 1 mg subcut QWEEK 01/08/23 History mg/1.5 mL) subcutaneous pen injector (Ozempic) Held on 11/30/23. Instructions: Resume on 12/10/23. until seen by pcp lithium carbonate 300 mg 600 mg PO HS 01/07/23 History tablet,extended release Allergies Allergy/AdvReac Type Severity Reaction Status Date / Time erythromycin base AdvReac Severe Vomiting Verified 01/30/25 18:19 Visit Medications Acetaminophen (Acetaminophen 325 Mg Tablet) 650 mg PO Q6H PRN PRN Reason: Fever >101.5 Stop: 03/01/25 22:20 Acetaminophen (Acetaminophen 325 Mg Tablet) 650 mg PO Q6H PRN PRN Reason: PAIN SCALE 1-3 (mild Stop: 03/01/25 22:26 Albuterol/Ipratropium (Albuterol/Ipratropium (Duoneb) Rt Nohemi 3 Ml Nebu) 3 ml INH Q4HRRT PRN PRN Reason: wheezing Stop: 03/01/25 22:59 Aspirin (Aspirin Ec 81 Mg Tabec) 81 mg PO QDAY RAVINDRA Stop: 03/02/25 08:59 Bisacodyl (Bisacodyl 5 Mg Tabec) 10 mg PO QDAY PRN; Protocol PRN Reason: CONSTIPATION Stop: 03/01/25 22:20 Heparin Sodium (Porcine) (Heparin Sod Inj 5000 Unit/Ml Vial) 5,000 unit SC Q8HR RAVINDRA Stop: 02/13/25 22:29 Ondansetron HCl (Ondansetron Inj 2 Mg/Ml Inj 2 Ml) 4 mg IV Q6H PRN; Protocol PRN Reason: NAUSEA OR VOMITING Stop: 03/01/25 22:20 Oxycodone/Acetaminophen (Oxycodone/Apap 5/325 Tablet) 1 tab PO Q6H PRN PRN Reason: PAIN SCALE 4-6 (Moderate Stop: 02/04/25 22:26 Pantoprazole Sodium (Pantoprazole Inj 40 Mg Vial) 40 mg IVP QDAY RAVINDRA Stop: 03/02/25 08:59 Assessment & Plan Plan Summary:HPI:A 54-year-old female patient with past medical history of CVA, bipolar disorder, cirrhosis secondary to steatosis, hyperlipidemia, diabetes mellitus, came to the ED due to history of 3 days of intermittent confusion and worsening numbness weakness in left side, she mentions that she has been having difficulty to walk because of the weakness and also she is always leaning to the left side as when she laid down and cannot straighten her body. Patient was admitted for acute encephalopathy workup and stroke rule out #Acute encephalopathy most likely multifactorial #Stroke rule out #Slurred speech #History of bipolar disorder #Hyperlipidemia On presentation patient was vital stable except for mild tachycardia 98, her pertinent labs showed hemoglobin of 11.5, WBC 3.4, coagulation panel within normal limits, CMP was significant for potassium of 3.5, glucose 295, lithium level was within normal limits, U-Tox was negative. Brain CT scan and head and neck CT angio were negative for any hemorrhage or mass effect and negative for any large vessel occlusion respectively. Teleneurologist was consulted and she recommended to do an cephalopathy workup which most likely multifactorial, and recommended no need for permissive hypertension. NIHSS score of 1 plan ? Admit patient to telemetry ? Physical therapy evaluation ? Speech therapy evaluation ? Start the patient on statins ? Neurochecks every 4 hours ? Seizures precautions ? Consider consulting in-house neurologist ? Echo stroke protocol ? No med reconciliation to rule out drug toxicity as the patient taking multiple neurotropic medications ? Aspirin 81 mg daily #History of bipolar disorder Patient has long history of bipolar disorder she is taking multiple neurotropic medications including clonazepam, lithium, pending official med reconciliation Plan ? Resume home medications cautiously as the patient except p #History of diabetes mellitus Plan ? Start the patient on insulin sliding scale ? Hypoglycemia protocol in place ? Follow-up on the A1c level #History of liver cirrhosis At this time patient liver cirrhosis is compensated, no history of hepatic eval Cande Plan ? Follow-up on daily CMP ?Avoid hepatotoxic medications ? Daily coag panel if clinically needed Hospital Maintenance: FEN:NPO till she passes swallow eval DVT ppx:Heparin Sq GI ppx:Protonix IV lines:PIV Art:None Code status: Full code Dispo:Tele - Patient's plan and care discussed with my attending, Dr. Patrick Castillo MD Internal Medicine PGY-2
[2025-01-30 23:31] LABS: Lithium 1.12 mEq/L (1.00-1.20)
[2025-01-30 23:51] VITALS: PULSE 92; RESP 20; O2SAT 96
[2025-01-31] VITALS (8 sets, daily range): BP systolic 106–122; BP diastolic 69–86; PULSE 88–94; RESP 17–23; TEMP 35.9–37; O2SAT 94–97; BMI 33.0
--- NOTE | 2025-01-31 | XR_ITS ---
Examinations: MRI Brain without intravenous contrast. MRA brain without intravenous contrast. MRA carotids without intravenous contrast 3-D vascular reconstructions Date and time of exam: January 31, 2025 1640 hrs. Indications: Stroke alert January 30, 2025, onset focal neurologic deficit, weakness, history multiple CVAs Technique: Multiple axial and sagittal images of the brain have been obtained MRA brain carotid images without contrast obtained, including 3-D postprocessing, vascular maximum intensity projection images Findings: [place] is not enlarged. The optic chiasm and infundibular stalk are not remarkable. Prepontine and interpeduncular cisterns are not enlarged. No localized enlargement of the medulla or irving. Fourth ventricle and cerebellar tonsils normal in position. Subacute hemorrhage is not seen. Fourth ventricle is midline. Mass in the cerebellopontine angle region is not evident. 7th and 8th nerve complexes exhibits symmetry. Globes are symmetrical with no retro-orbital mass. Punctate focus increased signal right frontal white matter FLAIR image 19 left parietal white matter FLAIR image 16 Diffusion-weighted images demonstrate no focus of restricted diffusion Mass-effect upon the ventricular system is not identified. MRA carotid images degraded by patient motion. MRA brain images no large vessel occlusions Impression: Negative for acute hemorrhage mass effect or midline shift No acute fracture Scattered punctate foci increased signal in the white matter, demyelinating disease pattern
[2025-01-31 05:49] LABS: Basophils % (Auto) 1 % (0-2.5); Eosinophils # (Auto) 0.1 Thou/mm3 (0.0-0.5); Eosinophils % (Auto) 4 % (0-10); Hematocrit 35.7 % (36.0-46.0); Hemoglobin 11.5 g/dL (12.0-16.0); Immature Granulocytes % (Auto) 0 % (0-0); Immature Granulocytes Auto 0.01 Thou/mm3 (0.00-0.00); Lymphocytes # (Auto) 0.9 Thou/mm3 (1.0-4.8); Lymphocytes % (Auto) 26 % (10-50); Mean Corpuscular HGB Conc 32.2 g/dl (31.0-37.0); Mean Corpuscular Hemoglobin 27.6 pg (25.0-35.0); Mean Corpuscular Volume 86 fL (80-100); Monocytes # (Auto) 0.2 Thou/mm3 (0.0-0.8); Monocytes % (Auto) 7 % (0-12); Neutrophils # (Auto) 2.1 Thou/mm3 (1.8-7.7); Neutrophils % (Auto) 63 % (37-80); Nucleated Red Blood Cell % 0 /100 WBC (0); Platelet Count 86 Thou/mm3 (140-440); RDW Standard Deviation 43.5 fL (36.4-46.3); Red Blood Count 4.17 Miln/mm3 (4.00-5.20); White Blood Count 3.4 Thou/mm3 (3.6-11.0)
[2025-01-31 06:07] LABS: Glucose Estimated Average 194 mg/dL (80-131); Hemoglobin A1C 8.4 % Hgb (4.8-6.0)
[2025-01-31 06:30] LABS: Alanine Aminotransferase 32 U/L (10-49); Albumin, Serum 3.9 gm/dL (3.5-5.0); Albumin/Globulin Ratio 1.8 (1.2-2.2); Alkaline Phosphatase 82 U/L (46-116); Anion Gap 9 (7-16); Aspartate Amino Transferase 29 U/L (0-34); BUN/Creatinine Ratio 9 Ratio (12-20); Bilirubin,Total 0.5 mg/dL (0.3-1.2); Blood Urea Nitrogen 8 mg/dL (9-23); Calcium 9.6 mg/dL (8.3-10.6); Calcium (Corrected) 9.7 mg/dL (8.5-10.1); Carbon Dioxide 24.2 mMol/L (20.0-31.0); Chloride 102 mMol/L (98-107); Creatinine (Component) 0.9 mg/dL (0.6-1.3); Estimated Creatinine Clearance 81.1 mL/min (>60); Globulin 2.2 gm/dL (2.3-3.5); Glucose 268 mg/dL (74-106); Magnesium 1.6 mg/dL (1.6-2.6); Osmolality,Calculated 277 (275-295); Phosphorous 2.8 mg/dL (2.4-5.1); Potassium 3.5 mMol/L (3.4-5.1); Sodium 135 mMol/L (136-145); Thyroid Stimulating Hormone 2.52 uIU/mL (0.55-4.78); Total Protein 6.1 gm/dL (5.7-8.2); eGFR > 60 See Note
[2025-01-31] MEDS: INSULIN LISPRO (AdmeLOG) 1 UNIT/0.01 ML UNIT SC ×2 (07:28→11:40)
[2025-01-31] MEDS: ASPIRIN EC 81 MG TABEC PO (08:33)
[2025-01-31] MEDS: INSULIN GLARGINE (Lantus) 5 UNIT/0.05 ML (PER 5 UNITS) 10 UNIT SC (08:33)
[2025-01-31] MEDS: HEPARIN SOD INJ 5000 UNIT/ML VIAL SC ×2 (08:33→20:46)
[2025-01-31] MEDS: PANTOPRAZOLE INJ 40 MG VIAL IVP (08:34)
--- NOTE | 2025-01-31 09:18 | PD.RESPRO ---
Documentation for date of: 01/31/25 Subjective Subjective Interval history: Patient seen and assessed at bedside this morning. Patient states to be feeling better today. Decreased left-sided weakness and slurred speech slightly improved. Exam Vital Signs Temp Pulse Resp BP Pulse Ox O2 Del Method O2 Flow Rate 97.5 F 90 17 107/75 97 Nasal Cannula 1 01/31/25 08:00 01/31/25 08:00 01/31/25 08:00 01/31/25 08:00 01/31/25 08:00 01/31/25 08:00 01/31/25 08:00 Narrative Exam GEN: AOx3, resting comfortably in bed, slight slurred speech CVS: Regular rate and rhythm, no murmurs, rubs, or gallops. RESP: Chest clear to auscultation bilaterally. GI: soft, mildly distended, non tender, NBS MSK: able to move all 4 limbs, no lower extremity edema SKIN: warm and dry FIELD CROP FARMWORKER: Equal upper extremity strength 4 out of 5. Equal lower extremity strength 4 out of 5. Slight slurred speech. No facial droopiness noted. Objective Labs 02/01/25 05:05 02/01/25 05:05 Labs: Laboratory Results - last 24 hr 01/30/25 01/30/25 01/31/25 18:48 20:08 04:51 WBC 4.4 3.4 L RBC 4.79 4.17 Hgb 13.2 11.5 L Hct 40.8 35.7 L MCV 85 86 MCH 27.6 27.6 MCHC 32.4 32.2 RDW Std Deviation 43.2 43.5 Plt Count 97 L 86 L Neut % (Auto) 69 63 Lymph % (Auto) 22 26 [place] % (Auto) 5 7 Eos % (Auto) 3 4 Baso % (Auto) 1 1 Neut # (Auto) 3.0 2.1 Lymph # (Auto) 1.0 0.9 L [place] # (Auto) 0.2 0.2 Eos # (Auto) 0.1 0.1 Baso # (Auto) 0.0 0.0 Immature Gran # (Auto) 0.01 H 0.01 H Absolute Nucleated RBC 0.00 0.00 Immature Gran % 0 0 Nucleated RBC % 0 0 PT 11.4 INR 1.0 APTT 27.6 Sodium 134 L 135 L Potassium 3.6 3.5 Chloride 98 102 Carbon Dioxide 25.8 24.2 Anion Gap 10 9 BUN 12 8 L Creatinine 1.2 0.9 Estim Creat Clear Calc 62.6 81.1 eGFR 54 L > 60 BUN/Creatinine Ratio 10 L 9 L Glucose [address] Glu mg/dL 194 H Hemoglobin A1c 8.4 H Calculated Osmolality 278 277 Calcium 10.4 9.6 Corrected Calcium 10.4 H 9.7 Phosphorus 2.8 Magnesium 1.6 1.6 Total Bilirubin 0.5 0.5 AST 31 29 ALT 40 32 Alkaline Phosphatase 109 82 D Troponin I < 0.002 B-Natriuretic Peptide < 20 Total Protein 7.1 6.1 Albumin 4.7 3.9 D Globulin 2.4 2.2 L Albumin/Globulin Ratio 2.0 1.8 TSH 2.52 Ur Collection Type Clean Catch Urine Color Colorless A Urine Clarity Clear Urine pH 6.5 Ur Specific [place] 1.024 Urine Protein Negative Urine Glucose (UA) Negative Urine Ketones Negative Urine Blood Negative Urine Nitrite Negative Urine Bilirubin Negative Urine Urobilinogen (Auto) Negative Ur Leukocyte Esterase Positive Urine RBC 2 Urine WBC 3 Ur Squamous Epith Cells 0 Urine Bacteria None Urine Opiates Screen Negative Urine Fentanyl Screen Negative Ur Barbiturates Screen Negative U Amphetamin/Meth Scrn Negative U Benzodiazepines Scrn Negative [employer] 1.12 U Cocaine Metab Screen Negative U Marijuana (THC) Screen Negative Ethyl Alcohol < 10.0 HCG (Qual) Negative Quality Measures Quality Measures VTE prophylaxis Assessment & Plan Assessment Current Active Medications: Generic Name Dose Route Start Last Admin Trade Name Freq PRN Reason Stop Dose Admin Acetaminophen 650 mg 01/30/25 22:21 Acetaminophen 325 Mg Tablet PO 03/01/25 22:20 Q6H PRN Fever >101.5 Acetaminophen 650 mg 01/30/25 22:27 Acetaminophen 325 Mg Tablet PO 03/01/25 22:26 Q6H PRN PAIN SCALE 1-3 (mild Albuterol/Ipratropium 3 ml 01/30/25 22:21 Albuterol/Ipratropium (Duoneb) Rt Nohemi 3 Ml Nebu INH 03/01/25 22:59 Q4HRRT PRN wheezing Aspirin 81 mg 01/31/25 09:00 01/31/25 08:33 Aspirin Ec 81 Mg Tabec PO 03/02/25 08:59 81 mg QDAY RAVINDRA Administration Atorvastatin Calcium 40 mg 01/31/25 21:00 Atorvastatin Calcium 20 Mg Tablet PO 03/02/25 20:59 HS RAVINDRA Bisacodyl 10 mg 01/30/25 22:21 Bisacodyl 5 Mg Tabec PO 03/01/25 22:20 QDAY PRN CONSTIPATION Protocol Dextrose 25 ml 01/30/25 22:36 Dextrose 50%-Water Inj 50 Ml Syringe IV 03/01/25 22:35 Q15MIN PRN BG 50-70 responsive npo pt Dextrose 50 ml 01/30/25 22:36 Dextrose 50%-Water Inj 50 Ml Syringe IV 03/01/25 22:35 Q15MIN PRN BG <50 OR BG <70 & pt unresponsive Glucagon 1 mg 01/30/25 22:36 Glucagon Inj 1 Mg Vial IM Q15MIN PRN BG <70, and no IV access Heparin Sodium (Porcine) 5,000 unit 01/31/25 09:00 01/31/25 08:33 Heparin Sod Inj 5000 Unit/Ml Vial SC 02/14/25 08:59 5,000 unit Q12HR RAVINDRA Administration Protocol Hydralazine HCl 10 mg 01/30/25 22:36 Hydralazine Inj 20 Mg/Ml Vial IV 03/01/25 22:44 Q2H PRN SBP >180mmHg Insulin Glargine 10 unit 01/31/25 09:00 01/31/25 08:33 Insulin Glargine (Lantus) 5 Unit/0.05 Ml (Per 5 Units) SC 03/02/25 08:59 10 unit QDAY RAVINDRA Administration Insulin Human Lispro 0 unit 01/31/25 07:30 01/31/25 07:28 Insulin Lispro (Admelog) 1 Unit/0.01 Ml Unit SC 03/02/25 07:29 3 unit AC RAVINDRA Administration Protocol Ondansetron HCl 4 mg 01/30/25 22:21 Ondansetron Inj 2 Mg/Ml Inj 2 Ml IV 03/01/25 22:20 Q6H PRN NAUSEA OR VOMITING Protocol Oxycodone/Acetaminophen 1 tab 01/30/25 22:27 Oxycodone/Apap 5/325 Tablet PO 02/04/25 22:26 Q6H PRN PAIN SCALE 4-6 (Moderate Pantoprazole Sodium 40 mg 01/31/25 09:00 01/31/25 08:34 Pantoprazole Inj 40 Mg Vial IVP 03/02/25 08:59 40 mg QDAY RAVINDRA Administration Plan #CVA workup #TIA #History of CVA Patient presenting with left-sided numbness and tingling and slight slurred speech CT head negative for any acute changes Patient started on aspirin 81 mg Continue home statin Head CT negative for any acute thrombus or blockage Pending head MRI Pending cardiac echo Continue with PT #History of diabetes mellitus #Bipolar #History of cirrhosis Continue management per primary team Case discussed with attending Dr Susan Garcia MD PGY3 Attending Provider Attestation/Addendum I personally have seen and examined the patient at the bedside and I agree with resident's findings, assessment and plan of care. Echocardiogram: Normal study MRI brain showed nonspecific chronic white matter changes not consistent with a demyelinating disease. She does not need any further workup. Patient is stable from neurology standpoint for discharge, she remains afocal on exam.
--- NOTE | 2025-01-31 13:57 | ESPR_ITS ---
<Statement entered by Emmanuel Gayle MD - 01/31/25 17:29> Patient was seen and examined by me personally. I agree with most of the assessment and plan as discussed with the cisco certified internetwork expert physician, and my attending, Dr. Miner. Patient seen and examined at bedside this morning. 54-year-old female with history of CVA was admitted for CVA rule out. Head CT, CTA were negative. Will obtain MRI, echo and follow-up with neuro recs. Patient was started on aspirin. Blood sugars noted to be elevated, will start Lantus and SSI with hypoglycemia protocol. PT eval done, however ST recommends dysphagia mechanical soft diet, and outpatient services for speech and swallowing. Emmanuel Gayle MD, PGY-3 Documentation for date of: 01/31/25 Subjective Subjective Interval history: Patient is an overnight admit. Patient seen and examined at bedside this morning patient states that she had weakness in her left arm and was having worsening of slurred speech which prompted her to come to the ED as she has history of ischemic stroke in 2023 and was in ICU for 20+ days. Although her symptoms have completely resolved she states that the intermittent slurred speech has progressively worsened over the months since her last stroke. Chest CTA also revealed a 16mm right thyroid nodule during her last admission which she has undergone biopsy January 05 and the biopsy results are pending and her appointment is scheduled for February 03. Patient states that she does have uncontrolled diabetes but initially she was trying to control her diabetes with her diet and Ozempic for approximately a year which did not work. Patient has recently started Mounjaro and was started on Lantus 10 units 3 days ago by primary care. Vitals are stable, patient saturating above 95% on 1 L oxygen via nasal cannula. Labs are stable with the exception of blood glucose of 268 and hemoglobin A1c is 8.4. Patient is pending neuro recs and echo with bubble study. Exam Vital Signs Temp Pulse Resp BP Pulse Ox O2 Del Method O2 Flow Rate 97.5 F 92 23 H 107/75 97 Nasal Cannula 1 01/31/25 08:00 01/31/25 08:47 01/31/25 08:47 01/31/25 08:00 01/31/25 08:47 01/31/25 08:00 01/31/25 08:00 Narrative Exam GENERAL: A&Ox3 . Awake, obese female, Not in acute distress NEURO: no focal neurological deficits HEENT: Atraumatic, Normocephalic. mucous membranes moist. Eyes open, symmetrical, & clear HEART: Normal Heart Sounds LUNGS: Clear to auscultation with no wheezing or crackles. ABDOMEN: soft, non-distended, non-tender, bowel sounds heard, no guarding or rebound tenderness SKIN: No Rash or ecchymoses EXTREMITIES: No edema, tenderness, able to move all 4 extremities, pedal pulses palpated NEURO:? ? MENTAL STATUS:?AAOx3 ? LANG/SPEECH: Fluent, intact naming, & comprehension ? CRANIAL NERVES: ? II: Pupils equal and reactive, no RAPD,?normal visual field and fundus ? III, IV, : EOM intact, no gaze preference or deviation ? V: normal ? VII: no facial asymmetry ? VIII: mildy slurred speech ? MOTOR: 5/5 in both upper and lower extremities ? SENSORY: Normal to touch, temperature & pin prick in all extremiteis ? COORD: Normal finger to nose, no tremor, no dysmetria Objective Labs 01/31/25 04:51 01/31/25 04:51 Labs: Laboratory Results - last 24 hr 01/30/25 01/30/25 01/31/25 18:48 20:08 04:51 WBC 4.4 3.4 L RBC 4.79 4.17 Hgb 13.2 11.5 L Hct 40.8 35.7 L MCV 85 86 MCH 27.6 27.6 MCHC 32.4 32.2 RDW Std Deviation 43.2 43.5 Plt Count 97 L 86 L Neut % (Auto) 69 63 Lymph % (Auto) 22 26 Rich % (Auto) 5 7 Eos % (Auto) 3 4 Baso % (Auto) 1 1 Neut # (Auto) 3.0 2.1 Lymph # (Auto) 1.0 0.9 L Rich # (Auto) 0.2 0.2 Eos # (Auto) 0.1 0.1 Baso # (Auto) 0.0 0.0 Immature Gran # (Auto) 0.01 H 0.01 H Absolute Nucleated RBC 0.00 0.00 Immature Gran % 0 0 Nucleated RBC % 0 0 PT 11.4 INR 1.0 APTT 27.6 Sodium 134 L 135 L Potassium 3.6 3.5 Chloride 98 102 Carbon Dioxide 25.8 24.2 Anion Gap 10 9 BUN 12 8 L Creatinine 1.2 0.9 Estim Creat Clear Calc 62.6 81.1 eGFR 54 L > 60 BUN/Creatinine Ratio 10 L 9 L Glucose [address] Glu mg/dL 194 H Hemoglobin A1c 8.4 H Calculated Osmolality 278 277 Calcium 10.4 9.6 Corrected Calcium 10.4 H 9.7 Phosphorus 2.8 Magnesium 1.6 1.6 Total Bilirubin 0.5 0.5 AST 31 29 ALT 40 32 Alkaline Phosphatase 109 82 D Troponin I < 0.002 B-Natriuretic Peptide < 20 Total Protein 7.1 6.1 Albumin 4.7 3.9 D Globulin 2.4 2.2 L Albumin/Globulin Ratio 2.0 1.8 TSH 2.52 Ur Collection Type Clean Catch Urine Color Colorless A Urine Clarity Clear Urine pH 6.5 Ur Specific Talbott 1.024 Urine Protein Negative Urine Glucose (UA) Negative Urine Ketones Negative Urine Blood Negative Urine Nitrite Negative Urine Bilirubin Negative Urine Urobilinogen (Auto) Negative Ur Leukocyte Esterase Positive Urine RBC 2 Urine WBC 3 Ur Squamous Epith Cells 0 Urine Bacteria None Urine Opiates Screen Negative Urine Fentanyl Screen Negative Ur Barbiturates Screen Negative U Amphetamin/Meth Scrn Negative U Benzodiazepines Scrn Negative [place] 1.12 U Cocaine Metab Screen Negative U Marijuana (THC) Screen Negative Ethyl Alcohol < 10.0 HCG (Qual) Negative Quality Measures Quality Measures VTE prophylaxis Assessment & Plan Assessment Current Active Medications: Generic Name Dose Route Start Last Admin Trade Name Freq PRN Reason Stop Dose Admin Acetaminophen 650 mg 01/30/25 22:21 Acetaminophen 325 Mg Tablet PO 03/01/25 22:20 Q6H PRN Fever >101.5 Acetaminophen 650 mg 01/30/25 22:27 Acetaminophen 325 Mg Tablet PO 03/01/25 22:26 Q6H PRN PAIN SCALE 1-3 (mild Albuterol/Ipratropium 3 ml 01/30/25 22:21 Albuterol/Ipratropium (Duoneb) Rt Nohemi 3 Ml Nebu INH 03/01/25 22:59 Q4HRRT PRN wheezing Aspirin 81 mg 01/31/25 09:00 01/31/25 08:33 Aspirin Ec 81 Mg Tabec PO 03/02/25 08:59 81 mg QDAY RAVINDRA Administration Atorvastatin Calcium 40 mg 01/31/25 21:00 Atorvastatin Calcium 20 Mg Tablet PO 03/02/25 20:59 HS RAVINDRA Bisacodyl 10 mg 01/30/25 22:21 Bisacodyl 5 Mg Tabec PO 03/01/25 22:20 QDAY PRN CONSTIPATION Protocol Dextrose 25 ml 01/30/25 22:36 Dextrose 50%-Water Inj 50 Ml Syringe IV 03/01/25 22:35 Q15MIN PRN BG 50-70 responsive npo pt Dextrose 50 ml 01/30/25 22:36 Dextrose 50%-Water Inj 50 Ml Syringe IV 03/01/25 22:35 Q15MIN PRN BG <50 OR BG <70 & pt unresponsive Glucagon 1 mg 01/30/25 22:36 Glucagon Inj 1 Mg Vial IM Q15MIN PRN BG <70, and no IV access Heparin Sodium (Porcine) 5,000 unit 01/31/25 09:00 01/31/25 08:33 Heparin Sod Inj 5000 Unit/Ml Vial SC 02/14/25 08:59 5,000 unit Q12HR RAVINDRA Administration Protocol Hydralazine HCl 10 mg 01/30/25 22:36 Hydralazine Inj 20 Mg/Ml Vial IV 03/01/25 22:44 Q2H PRN SBP >180mmHg Insulin Glargine 10 unit 01/31/25 09:00 01/31/25 08:33 Insulin Glargine (Lantus) 5 Unit/0.05 Ml (Per 5 Units) SC 03/02/25 08:59 10 unit QDAY RAVINDRA Administration Insulin Human Lispro 0 unit 01/31/25 07:30 01/31/25 11:40 Insulin Lispro (Admelog) 1 Unit/0.01 Ml Unit SC 03/02/25 07:29 2 unit AC RAVINDRA Administration Protocol Ondansetron HCl 4 mg 01/30/25 22:21 Ondansetron Inj 2 Mg/Ml Inj 2 Ml IV 03/01/25 22:20 Q6H PRN NAUSEA OR VOMITING Protocol Oxycodone/Acetaminophen 1 tab 01/30/25 22:27 Oxycodone/Apap 5/325 Tablet PO 02/04/25 22:26 Q6H PRN PAIN SCALE 4-6 (Moderate Pantoprazole Sodium 40 mg 01/31/25 09:00 01/31/25 08:34 Pantoprazole Inj 40 Mg Vial IVP 03/02/25 08:59 40 mg QDAY RAVINDRA Administration Plan A 54-year-old female patient with past medical history of CVA, bipolar disorder, cirrhosis secondary to steatosis, hyperlipidemia, diabetes mellitus, came to the ED due to history of 3 days of intermittent confusion and worsening numbness weakness in left side, she mentions that she has been having difficulty to walk because of the weakness and also she is always leaning to the left side as when she laid down and cannot straighten her body. Patient was admitted for acute encephalopathy workup and stroke rule out #Acute CVA rule out #Hx of Ischemic stroke, 2023 #TIA, likely On presentation patient complained of worsening slurred speech and left sided weakness which resolved upon arriving to the ED. -lithium level was within normal limits, U-Tox was negative. -Pt has history of ischemic stroke in nov 2023 for which she was in the ICU for 20+ day, pt initially had residual deficit of left side weakness and slurred speech which has improved. however the slurred speech has recently gotten worse -Brain CT scan and head and neck CT angio were negative for any hemorrhage or mass effect and negative for any large vessel occlusion respectively. -Teleneurologist was consulted and she recommended to do an cephalopathy workup which most likely multifactorial, and recommended no need for permissive hypertension. -NIHSS score of 1 plan -Physical therapy evaluation -Speech therapy evaluation -Neurochecks every 4 hours -Seizures precautions -inhouse neurologist consulted, appreciate recommendations -Echo with bubble study pending -MRI pending -Aspirin 81 mg daily -Start the patient on statins #History of bipolar disorder -Patient has long history of bipolar disorder she is taking multiple neurotropic medications including clonazepam and lithium Plan -Resumed home lithium -lithium levels 1.12 #Insulin dependent type 2 diabetes mellitus -A1c 8.4, blood sugars on admission 268 -Pt's previously was taking ozempic and diet control, and switch to manjaouro. 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 Gayle & attending physician Dr. Kristofer Miranda (PGY-1)- Internal medicine resident Attending Provider Attestation/Addendum I have discussed and was present for the essential components of the history, physical examination, diagnosis, and treatment plan with the resident. I agree with the patient's care as documented by the resident and amended herein by me. Keith Miner DO. Although this document has been carefully reviewed, there may still be some phonetic and other typographical errors. These errors are purely grammatical due to imperfections in the software program and should not be construed in any way to compromise the substance of the patient's medical care during this visit.
--- NOTE | 2025-01-31 14:19 | PC.SS ---
Patient Jossie Caro is a 54 Year old female admitted for LT sided weakness slurred speech. Patient appeared alert and oriented. She reports she lives at home with her life partner, Nasreen Perez who she reports is her surrogate decision maker [phone]. She reports she utilizes a wheelchair at times when needed. She is able to complete ADL's independently. [facility] and PCP is Miriam Sanchez. At time of discharge patient will return home, life partner will provide transportation. Next of kin: Life partner, Micaela Perez [phone]. Discharge plan: Home
[2025-01-31] MEDS: LITHIUM CARB 150 MG CAPSULE 600 MG PO (20:45)
[2025-01-31] MEDS: ATORVASTATIN CALCIUM 20 MG TABLET 40 MG PO (20:46)
--- NOTE | 2025-01-31 22:27 | ECHO_ITS ---
Transthoracic Echo Report Ht (in): 65 Wt (lb): 199 Exam Location: Portable Status: Inpatient Liquid Chlorine Operator: BETSY Rabago^^^^ Indications: Procedure Performed: BP: 134 / 81 HR: 89 Technical Quality: Fair MEASUREMENTS (Male / Female) Normal Values 2D ECHO LV Diastolic Diameter PLAX 3.7 cm 4.2 - 5.9 / 3.9 - 5.3 cm LV Systolic Diameter PLAX 2.2 cm IVS Diastolic Thickness 0.8 cm 0.6 - 1.0 / 0.6 - 0.9 cm LVPW Diastolic Thickness 0.9 cm 0.6 - 1.0 / 0.6 - 0.9 cm LV Relative Wall Thickness 0.5 LVOT Diameter 1.6 cm Aortic Root Diameter 3.0 cm LA Systolic Diameter LX 4.1 cm 3.0 - 4.0 / 2.7 - 3.8 cm LV Ejection Fraction MOD 4C 73.7 % LV Cardiac Index MOD 4C 2993.9 cm?/min?m? LV Ejection Fraction 4C AL 76.0 % LV Cardiac Index 4C AL 3251.8 cm?/min?m? LA Volume Index 17.7 cm?/m? 16 - 28 cm?/m? Ascending Aorta Diameter 2.7 cm DOPPLER AV Peak Velocity 142.5 cm/s AV Peak Gradient 8.1 mmHg AV Mean Gradient 5.0 mmHg AV Velocity Time Integral 32.2 cm LVOT Peak Velocity 114.0 cm/s LVOT Peak Gradient 5.2 mmHg LVOT Velocity Time Integral 25.2 cm LVOT Cardiac Index 2179.5 cm?/min?m? AV Area Cont Eq vti 1.6 cm? AV Area Cont Eq pk 1.6 cm? MV Area PHT 3.5 cm? Mitral E Point Velocity 49.0 cm/s Mitral A Point Velocity 81.5 cm/s Mitral E to A Ratio 0.6 LV E' Lateral Velocity 6.6 cm/s Mitral E to LV E' Lateral Ratio 7.4 LV E' Septal Velocity 7.8 cm/s Mitral E to LV E' Septal Ratio 6.3 TR Peak Velocity 213.0 cm/s TR Peak Gradient 18.1 mmHg PV Peak Velocity 106.0 cm/s PV Peak Gradient 4.5 mmHg RVOT Peak Velocity 69.5 cm/s FINDINGS Left Ventricle Normal left ventricular size, wall thickness, systolic function with no obvious regional wall motion abnormalities. There is grade I diastolic dysfunction of the left ventricle (impaired relaxation pattern). The left ventricular ejection fraction is normal, estimated at 60-65%. Right Ventricle The right ventricle is normal in size and systolic function. The estimated right ventricular systolic pressure, 21 mmHg. Left Atrium The left atrium is normal by two-dimensional, color flow and Doppler imaging with no structural abnormalities, no thrombus formation present. Right Atrium The right atrium is normal by two-dimensional imaging, color flow and Doppler imaging with no structural abnormalities, no thrombus formation present. Atrial Septum The interatrial septum is normal to color flow Doppler and agitated saline imaging. Aorta The aorta is normal by two-dimensional, color flow and Doppler interrogation. Mitral Valve Trace to mild mitral regurgitation. Mild mitral annular calcification. Aortic Valve Aortic valve sclerosis. Tricuspid Valve There is mild tricuspid valve regurgitation. Pulmonic Valve Trivial pulmonic valve regurgitation. Vessels The pulmonary artery appears normal. The inferior vena cava pulmonary and hepatic veins appear normal. Pericardium The pericardium is normal by two-dimensional imaging. There is no significant pericardial effusion. CONCLUSIONS indication: stroke w/ bubble LV appears normal with EF 60-65%. Diastolic Dysfunction I present. RV appears normal with RVSP 21 mmHg. IAS is normal to color flow Doppler and agitated saline imaging. NO EVIDENCE OF PFO, OR SHUNTS Posterior annulus calcification with trivial MR Mild TR Chloe Cabrales (Electronically Signed) Final Date: 31 January 2025 17:38
[2025-02-01] VITALS: BP 131/76; PULSE 88; RESP 17; TEMP 36.6; O2SAT 97
[2025-02-01 04:00] VITALS: BP 116/64; PULSE 91; RESP 25; TEMP 36.8; O2SAT 94
[2025-02-01 06:00] VITALS: BMI 33.3
[2025-02-01 06:11] LABS: Basophils % (Auto) 1 % (0-2.5); Eosinophils # (Auto) 0.1 Thou/mm3 (0.0-0.5); Eosinophils % (Auto) 5 % (0-10); Hemoglobin 11.7 g/dL (12.0-16.0); Immature Granulocytes % (Auto) 0 % (0-0); Immature Granulocytes Auto 0.01 Thou/mm3 (0.00-0.00); Lymphocytes # (Auto) 0.9 Thou/mm3 (1.0-4.8); Lymphocytes % (Auto) 29 % (10-50); Mean Corpuscular HGB Conc 31.6 g/dl (31.0-37.0); Mean Corpuscular Hemoglobin 27.5 pg (25.0-35.0); Mean Corpuscular Volume 87 fL (80-100); Monocytes # (Auto) 0.2 Thou/mm3 (0.0-0.8); Monocytes % (Auto) 7 % (0-12); Neutrophils # (Auto) 1.7 Thou/mm3 (1.8-7.7); Neutrophils % (Auto) 58 % (37-80); Nucleated Red Blood Cell % 0 /100 WBC (0); Platelet Count 91 Thou/mm3 (140-440); RDW Standard Deviation 44.6 fL (36.4-46.3); Red Blood Count 4.25 Miln/mm3 (4.00-5.20)
[2025-02-01 06:18] LABS: White Blood Count 2.9 Thou/mm3 (3.6-11.0)
[2025-02-01 06:41] LABS: Alanine Aminotransferase 33 U/L (10-49); Albumin/Globulin Ratio 1.9 (1.2-2.2); Alkaline Phosphatase 72 U/L (46-116); Anion Gap 7 (7-16); Aspartate Amino Transferase 29 U/L (0-34); BUN/Creatinine Ratio 9 Ratio (12-20); Bilirubin,Total 0.6 mg/dL (0.3-1.2); Blood Urea Nitrogen 8 mg/dL (9-23); Calcium 9.9 mg/dL (8.3-10.6); Calcium (Corrected) 9.9 mg/dL (8.5-10.1); Carbon Dioxide 27.8 mMol/L (20.0-31.0); Chloride 103 mMol/L (98-107); Creatinine (Component) 0.9 mg/dL (0.6-1.3); Estimated Creatinine Clearance 81.4 mL/min (>60); Globulin 2.1 gm/dL (2.3-3.5); Glucose 210 mg/dL (74-106); Magnesium 1.7 mg/dL (1.6-2.6); Osmolality,Calculated 279 (275-295); Phosphorous 2.6 mg/dL (2.4-5.1); Potassium 3.9 mMol/L (3.4-5.1); Sodium 138 mMol/L (136-145); Total Protein 6.1 gm/dL (5.7-8.2); eGFR > 60 See Note
[2025-02-01] MEDS: INSULIN LISPRO (AdmeLOG) 1 UNIT/0.01 ML UNIT SC ×2 (07:25→11:23)
[2025-02-01 07:53] VITALS: PULSE 89; RESP 17; O2SAT 96; O2SAT 97
[2025-02-01 08:00] VITALS: BP 109/70; PULSE 88; PULSE 89; RESP 17; TEMP 36.3; O2SAT 92
[2025-02-01] MEDS: ASPIRIN EC 81 MG TABEC PO (08:12)
[2025-02-01] MEDS: HEPARIN SOD INJ 5000 UNIT/ML VIAL SC (08:12)
[2025-02-01] MEDS: PANTOPRAZOLE INJ 40 MG VIAL IVP (08:12)
[2025-02-01] MEDS: INSULIN GLARGINE (Lantus) 5 UNIT/0.05 ML (PER 5 UNITS) 10 UNIT SC (08:13)
--- NOTE | 2025-02-01 11:43 | ESDS_ITS ---
<Statement entered by Pasquale Moore MD - 02/01/25 21:21> I saw and examined the patient, and I agree with current management stated by Dr Ruben MD,PGY1. Plan of care was discussed with the attending physician and resident physician. Disclaimer: Despite multiple revisions, due to the dictation software being used, the document bellow may not be free of grammatical errors including phonetic/typographic errors. However, this does not deter from our commitment to providing health care in the patient's best interest in mind. Dr. Oscar MD, PGY 2 Planned Discharge Date 02/01/25 DS: Providers Provider Date of admission: 01/31/25 14:55 Primary care physician: TORIN Winter Admitting Provider: Negro Nguyen MD Attending Provider on Admission: Eben Miner DO Consults: 01/30/25 22:29 Referral Physical Therapy Routine Comment: Physician Instructions: 01/30/25 22:35 Consult to Neurology / Tele-Neurology Routine Comment: Stroke R/O Consulting Provider: Mele Davis Attending Provider on DC: Eben Miner DO Discharging Provider: Eben Miner DO DS: Diagnosis Problem List Completed Was Problem List Reviewed/Reconciled?: Yes Hospital Course Hospital Course Hospital course: This 54-year-old female with a history of bipolar disorder, CVA, cirrhosis due to steatosis, hyperlipidemia, and diabetes presented with 3 days of intermittent confusion, worsening left-sided numbness and weakness, difficulty walking, and a tendency to lean to the left while lying down. She also reported difficulty swallowing and occasional choking but denied blurry vision or tinnitus. A stroke alert was initiated. Initial workup, including EKG (showing sinus rhythm with QTc 536), head CT, and head/neck CTA, revealed no hemorrhage, mass effect, or acute infarction. Teleneurology consultation was obtained, and the NIHSS score was 1. The neurologist recommended continuing daily aspirin and atorvastatin. Echocardiogram with bubble study was negative, showing an EF of 60-65% with grade 1 diastolic dysfunction. MRI brain without contrast demonstrated a demyelinating pattern but no acute infarction. After reconciliation of home medications and bedside evaluation, the patient was deemed medically stable for discharge. The neurologist concluded that further neurological workup was unnecessary, and the patient was discharged home. Discharge diagnosis: #Acute CVA, ruled out #History of ischemia in 2023 #TIA, likely #History of bipolar disorder #Insulin-dependent type 2 diabetes #Hyperlipidemia #History of liver cirrhosis DC instructions: -Follow up with primary care physician within 2 weeks -You have been started on new medication called atorvastatin 40mg and Aspirin 81mg, take as directed -Discuss with your primary care physician regarding your management of diabetes -if your symptoms reoccur or worsen, promptly return to the ED Patient was discussed with attending physician, Dr. Kristofer Miranda(PGY-1), internal medicine resident Time Spent with Patient Time attestation: Total time spent providing and/or coordinating discharge services: Exam Vital Signs Temp Pulse Resp BP Pulse Ox O2 Del Method O2 Flow Rate 97.4 F 88 17 109/70 92 L Room Air 1 02/01/25 08:00 02/01/25 08:00 02/01/25 08:00 02/01/25 08:00 02/01/25 08:00 02/01/25 08:00 01/31/25 08:00 Narrative Exam GENERAL: A&Ox3 . Awake, obese female, Not in acute distress NEURO: no focal neurological deficits HEENT: Atraumatic, Normocephalic. mucous membranes moist. Eyes open, symmetrical, & clear HEART: Normal Heart Sounds LUNGS: Clear to auscultation with no wheezing or crackles. ABDOMEN: soft, non-distended, non-tender, bowel sounds heard, no guarding or rebound tenderness SKIN: No Rash or ecchymoses EXTREMITIES: No edema, tenderness, able to move all 4 extremities, pedal pulses palpated NEURO:? ? MENTAL STATUS:?AAOx3 ? LANG/SPEECH: Fluent, intact naming, & comprehension ? CRANIAL NERVES: ? II: Pupils equal and reactive, no RAPD,?normal visual field and fundus ? III, IV, : EOM intact, no gaze preference or deviation ? V: normal ? VII: no facial asymmetry ? VIII: mildy slurred speech ? MOTOR: 5/5 in both upper and lower extremities ? SENSORY: Normal to touch, temperature & pin prick in all extremiteis ? COORD: Normal finger to nose, no tremor, no dysmetria Discharge Plan Plan Patient Disposition: HOME (Self Care) Patient condition on transfer: Stable Care Plan Goals: -Follow up with primary care physician within 2 weeks -You have been started on new medication called atorvastatin 40mg and Aspirin 81mg, take as directed -Discuss with your primary care physician regarding your management of diabetes -if your symptoms reoccur or worsen, promptly return to the ED Prescriptions/Referrals Prescriptions/Med Rec: New atorvastatin 40 mg tablet 40 mg PO HS Qty: 60 0RF Continued clozapine 100 mg tablet 200 mg PO HS Patient Comments: TAKE 3 TABLETS BY MOUTH EVERY DAY AT BEDTIME (DME) True Metrix Glucose Test Strip Strip Patient Comments: CHECK BLOOD SUGAR THREE TIMES A DAY clomipramine 75 mg capsule 50 mg PO DAILY albuterol sulfate 90 mcg/actuation Hfa Aerosol Inhaler 2 puff INHALATION QID PRN (Reason: Wheezing) aspirin 81 mg tablet,delayed release (DR/EC) 81 mg PO QDAY Qty: 30 2RF lithium carbonate 300 mg tablet extended release 600 mg PO HS bupropion HCl 100 mg tablet 100 mg PO HS Patient Comments: TAKE 1 TABLET BY MOUTH ONCE A DAY montelukast 10 mg tablet 10 mg PO HS Patient Comments: TAKE 1 TABLET BY MOUTH EVERYDAY AT BEDTIME hydroxyzine HCl 10 mg tablet 10 mg PO BID PRN (Reason: anxiety) Patient Comments: TAKE 1 TABLET BY MOUTH TWICE A DAY NEEDED lisinopril 2.5 mg tablet 2.5 mg PO HS Patient Comments: TAKE 1 TABLET BY MOUTH NIGHTLY AT BEDTIME sertraline 100 mg Tablet 200 mg PO HS insulin glargine [Lantus Solostar U-100 Insulin] 100 unit/mL (3 mL) insulin pen 10 unit SUBCUT HS benzonatate 200 mg capsule 200 mg PO TID PRN (Reason: cough) Patient Comments: TAKE 1 CAPSULE 3 TIMES A DAY BY ORAL ROUTE NEEDED FOR 15 DAYS, FOR COUGH. omeprazole 20 mg capsule,delayed release(DR/EC) 20 mg PO HS Patient Comments: TAKE 1 CAPSULE BY MOUTH EVERY DAY Mounjaro 12.5 mg/0.5 mL pen injector 12.5 mg SUBCUT .WEEKLY Patient Comments: INJECT 12.5MG SUBCUTANEOUSLY WEEKLY Nurtec ODT 75 mg tablet,disintegrating 75 mg PO Q OTHER DAY PRN (Reason: migraine headache) ipratropium-albuterol 0.5 mg-3 mg(2.5 mg base)/3 mL solution for nebulization 3 ml inhalation BID acetylcysteine [NAC] 600 mg capsule 600 mg PO QDAY Breztri Aerosphere 160-9-4.8 mcg/actuation HFA aerosol inhaler 2 inh inhalation BID Discontinued Synjardy XR 25-1,000 mg Tablet, Ir - Er, Biphasic 24hr 1 tab PO BID Ozempic 0.25 mg or 0.5 mg(2 mg/1.5 mL) Pen Injector 1 mg SUBCUT QWEEK Rx Instructions: for 4 doses atorvastatin 80 mg tablet 80 mg PO QPM Qty: 30 2RF amiloride 5 mg tablet 5 mg PO QDAY Qty: 14 0RF Referrals: Marycarmen Sanchez FNP [Primary Care Provider] - Patient/Caregiver Discharge Instructions Education Materials: Discharge Instructions for Stroke, Diabetes Exercise Plan, Diabetes: Meal Planning Print Language: Nigerian Stand Alone Forms: Joanne Award Info., Patient Portal Info Letter Discharge Order Discharge Orders: Discharge (Routine); Ordered 02/01/25 Ordered By: Lizet Miranda Quality Discharge Quality Measures VTE prophylaxis (Heparin SC ) MD Attestestation MD Attestation I have discussed and was present for the essential components of the discharge history, physical examination, diagnosis, and discharge treatment plan with the resident. I agree with the patient's discharge care as documented by the resident and amended herein by me. Keith Miner DO. The patient understood all discharge instructions, all questions were answered satisfactorily. The patient was instructed to return to the Emergency Department is symptoms worsened or persisted. Patient was stable and afebrile at time of discharge. Although this document has been carefully reviewed, there may still be some phonetic and other typographical errors. These errors are purely grammatical due to imperfections in the software program and should not be construed in any way to compromise the substance of the patient's medical care during this visit.
[2025-02-01 12:00] VITALS: BP 125/79; PULSE 87; RESP 17; TEMP 36.4; O2SAT 94
== END 2025-02-01 12:05 | disposition home or self-care (01) | DRG 69 ==
LOC: SERX 20:08 → SERHOLD 22:57 → S2NX 01-31 08:20
PROVIDERS: Student in an Organized Health Care Education/Training Program; Admitting Provider Internal Medicine; Emergency Provider Emergency Medicine; PCP Nurse Practitioner; Visit Provider Student in an Organized Health Care Education/Training Program
DX: G45.9 Transient cerebral ischemic attack, unspecified (principal); G93.49 Other encephalopathy; R47.1 Dysarthria and anarthria; F31.9 Bipolar disorder, unspecified; E11.65 Type 2 diabetes mellitus with hyperglycemia; K74.60 Unspecified cirrhosis of liver; R13.10 Dysphagia, unspecified; E78.5 Hyperlipidemia, unspecified; I45.10 Unspecified right bundle-branch block; R53.1 Weakness; E04.1 Nontoxic single thyroid nodule; R29.701 NIHSS score 1; Z86.73 Personal history of transient ischemic attack (TIA), and cerebral infarction without residual deficits; Z79.4 Long term (current) use of insulin; Z87.891 Personal history of nicotine dependence; Z79.84 Long term (current) use of oral hypoglycemic drugs
CPT/HCPCS: 36415; 70450; 70496; 70498; 70544; 80053; 80178; 80307; 80320; 81001; 83036; 83735; 83880; 84100; 84443; 84484; 84703; 85025; 85610; 85730; 87086; 92526; 92610; 93005; 93306; 97162; 99291; A4649; G0378; J1643; J1815; J2470; Q9967; A9270; G0480

== ENCOUNTER → 2025-04-20 | Outpatient (CLI) | payer MEDICARE, MEDICAID, SELFPAY ==
--- NOTE | 2025-04-20 16:28 | XR_ITS ---
Examination: PA lateral chest 2 views TECHNIQUE: Upright PA and lateral chest 2 views Date and time: April 20, 2025 1638 hours Comparison October 07, 2024 INDICATIONS: Shortness of breath beginning 4 weeks ago. FINDINGS: Significant fairly diffuse pneumonia in the left lung Right lung clear No pulmonary edema Intact osseous structures IMPRESSION: Significant left lung pneumonia
== END | disposition home or self-care (01) ==
PROVIDERS: PCP Nurse Practitioner Family; Referring Provider Nurse Practitioner Family; Visit Provider Nurse Practitioner Family
DX: J18.9 Pneumonia, unspecified organism (principal)
CPT/HCPCS: 71046

== ENCOUNTER 2025-05-29 18:57 | Emergency (ER) | payer MEDICARE, MEDICAID, SELFPAY ==
[2025-05-29 18:57] VITALS: BMI 32.4
[2025-05-29 19:05] VITALS: BP 124/79; PULSE 96; RESP 18; TEMP 36.6; O2SAT 96
--- NOTE | 2025-05-29 19:17 | PD.EDEAR ---
ED Ear RME/HPI General Chief complaint: Ear Stated complaint: RIGHT EAR INFECTION Time Seen by Provider: 05/29/25 18:58 Arrival date/time: 05/29/25 18:57 This is a case of 54-year-old female who came in in the emergency room due to right ear pain for 2 days worsening of the symptoms this patient decided to sought consult here in the emergency room patient denies any ear discharge ear injury tinnitus or dizziness denies any respiratory symptoms Limitations: no limitations Related Data Home Medications ?Medication ?Instructions ?Recorded ?Confirmed blood sugar diagnostic (True 05/20/21 01/31/25 Metrix Glucose Test Strip) clozapine 100 mg tablet 200 mg PO HS 05/20/21 01/31/25 albuterol sulfate 90 mcg/actuation 2 puff inhalation QID PRN Wheezing 05/03/22 01/31/25 aerosol inhaler clomipramine 75 mg capsule 50 mg PO DAILY 05/03/22 01/31/25 lithium carbonate 300 mg 600 mg PO HS 01/07/23 01/31/25 tablet,extended release acetylcysteine 600 mg capsule (NAC) 600 mg PO QDAY 01/31/25 01/31/25 benzonatate 200 mg capsule 200 mg PO TID PRN cough 01/31/25 01/31/25 budesonide 160 mcg-glycopyr 9 2 inh inhalation BID 01/31/25 01/31/25 mcg-formot 4.8 mcg/actuation HFA inhaler (Breztri Aerosphere) bupropion HCl 100 mg tablet 100 mg PO HS 01/31/25 01/31/25 hydroxyzine HCl 10 mg tablet 10 mg PO BID PRN anxiety 01/31/25 01/31/25 insulin glargine 100 unit/mL (3 10 unit subcut HS dm 01/31/25 01/31/25 mL) subcutaneous pen (Lantus Solostar U-100 Insulin) ipratropium 0.5 mg-albuterol 3 mg 3 ml inhalation BID 01/31/25 01/31/25 (2.5 mg base)/3 mL nebulization soln lisinopril 2.5 mg tablet 2.5 mg PO HS 01/31/25 01/31/25 montelukast 10 mg tablet 10 mg PO HS 01/31/25 01/31/25 omeprazole 20 mg capsule,delayed 20 mg PO HS 01/31/25 01/31/25 release rimegepant 75 mg disintegrating 75 mg PO Q OTHER DAY PRN migraine 01/31/25 01/31/25 [facility] headache sertraline 100 mg tablet 200 mg PO HS 01/31/25 01/31/25 tirzepatide 12.5 mg/0.5 mL 12.5 mg subcut .WEEKLY 01/31/25 01/31/25 subcutaneous pen injector (Daron) Previous Rx's ?Medication ?Instructions ?Recorded aspirin 81 mg tablet,delayed 81 mg PO QDAY cva #30 tabs 11/30/23 release atorvastatin 40 mg tablet 40 mg PO HS #60 tabs 02/01/25 amoxicillin 500 mg-potassium 1 tab PO Q12H 10 days #20 tabs 05/29/25 clavulanate 125 mg tablet hydrocodone 5 mg-acetaminophen 325 1 tab PO Q6H PRN pain #8 tabs 05/29/25 mg tablet ofloxacin 0.3 % ear drops 10 drp otic (ear) QDAY 7 days #10 05/29/25 mL Allergies Allergy/AdvReac Type Severity Reaction Status Date / Time erythromycin base AdvReac Severe Vomiting Verified 05/29/25 18:57 Review of Systems Review of Systems Systems Reviewed: All systems reviewed, normal except as documented Constitutional Constitutional: Reports system reviewed and no additional complaints, except as documented, Reports as per HPI and Denies headache(s) ENT Ears, Nose, Mouth, and Throat: Reports system reviewed and no additional complaints, except as documented, Reports as per HPI, Denies abnormal hearing, Denies bleeding gums, Denies change in voice, Denies dental pain, Denies dizziness, Denies dry mouth, Denies dysphagia, Denies ear discharge, Reports otalgia, Denies epistaxis, Denies facial pain, Denies headache(s), Denies lip swelling, Denies mouth lesions, Denies mouth pain, Denies nasal congestion, Denies nasal discharge, Denies nasal obstruction, Denies nasal trauma, Denies neck mass, Denies neck pain, Denies nose pain, Denies odynophagia, Denies post nasal drip, Denies sinus pain, Denies sinus pressure, Denies sore throat, Denies throat swelling, Denies tinnitus, Denies tongue swelling and Denies vertigo Cardiovascular Cardiovascular: Reports system reviewed and no additional complaints, except as documented and Reports as per HPI Respiratory Respiratory: Reports system reviewed and no additional complaints, except as documented and Reports as per HPI Gastrointestinal Gastrointestinal: Reports system reviewed and no additional complaints, except as documented, Reports as per HPI, Denies dysphagia and Denies odynophagia Musculoskeletal Musculoskeletal: Denies neck pain Integumentary/Breasts Skin/Breast: Reports system reviewed and no additional complaints, except as documented and Reports as per HPI Neurologic Neurologic: Reports system reviewed and no additional complaints, except as documented, Reports as per HPI, Denies abnormal hearing, Denies dizziness, Denies headache(s) and Denies vertigo Allergic/Immunologic Allergic/Immunologic: Denies lip swelling, Denies throat swelling and Denies tongue swelling Past Medical History Past Medical History NEUROLOGIC: Positive Neurological Disorders, Cerebrovascular Accident (October 2023), Peripheral Neuropathy and Migraine; Negative Seizures CARDIAC: Positive Hypercholesterolemia; Negative Cardiac Disorders, Congestive Heart Failure, Edema, Cellulitis or Varicose Veins RESPIRATORY: Positive Emphysema and Pneumonia; Negative Chronic Obstructive Pulmonary Disease (COPD), Asthma, Tuberculosis or Sleep Apnea GASTROINTESTINAL: Positive Gastrointestinal Disorders, Cirrhosis and Gall Bladder Disease; Negative Hepatitis GENITOURINARY: Positive Genitourinary Disorders and Kidney Stones; Negative Renal Disease REPRODUCTIVE: Negative Previous Pregnancies MUSCULOSKELETAL: Positive Arthritis; Negative Musculoskeletal Disorders ENDOCRINE: Positive Endocrine Disorders and Diabetes Mellitus Type 2; Negative Diabetes Mellitus Type 1 HEMATOLOGIC: Positive Clotting Problems; Negative Blood Disorders or Sickle Cell Disease PSYCHO/SOCIAL: Positive Bipolar Disorder, Depression, Anxiety and Post Traumatic Stress Disorder OTHER HISTORY: Positive Hospitalization, MRSA and Chicken Pox; Negative Autoimmune Disease, Shingles, Falls, Blood Transfusions, Anesthesia Reactions, Chemotherapy, Radiation Therapy, Measles, Mumps or Cancer Family History FAMILY HISTORY: Positive Family Cardiac Disorders and Family Surgery; Negative Family Psychiatric Problems, Family Respiratory Disorders, Family Gastrointestinal Problems, Family Cancer or Family Anesthesia Reaction Surgical History SURGICAL: Positive Nose Surgery, Abdominal Surgery and Hysterectomy; Negative Pacemaker Social History SMOKING STATUS: Former smoker SUBSTANCE USE: does not use ED Exam General Limitations: Present no limitations General appearance: Present alert, in no apparent distress and other (Awake alert oriented not in distress nontoxic looking well-hydrated well-nourished) Head Head exam: Present atraumatic, normocephalic and normal inspection Eye Eye exam: Present normal appearance, PERRL and EOMI ENT ENT exam: Present normal exam, normal oropharynx, mucous membranes moist and other (Nose and throat exam is normal bilateral ear canal noted red mild tender no swelling no discharge no foreign body no mastoid tenderness bilaterally tympanic membrane are both retracted bulging red but not perforated) Neck Neck exam: Present normal inspection, full ROM and trachea midline Chest Chest inspection: Present normal inspection and symmetric chest wall rise Respiratory Respiratory exam: Present normal lung sounds bilaterally; Absent respiratory distress, wheezes, stridor, accessory muscle use or prolonged expiratory phase Cardiovascular Cardiovascular exam: Present regular rate, normal rhythm and normal heart sounds; Absent bradycardia, tachycardia, irregular rhythm, systolic murmur or diastolic murmur Abdominal Exam Abdominal exam: Present soft and normal bowel sounds Extremities Exam Extremities exam: Present normal inspection and full ROM Back Exam Back exam: Present normal inspection and full ROM Neurological Exam Neurological exam: Present alert, oriented X3, CN II-XII intact, normal gait and reflexes normal; Absent motor sensory deficit Psychiatric Psychiatric exam: Present normal affect and normal mood Skin Skin exam: Present warm, dry, intact and normal color Course Quality Measures none Orders Category Date Time Status HYDROcodone*/APAP 5/325 [Brunswick 5/325] Med 05/29/25 19:11 Discontinued 1 tab PO X1 ONE Ketorolac Inj [Toradol Inj] Med 05/29/25 19:11 Discontinued 30 mg IM X1 ONE Vital Signs Vital signs: Vital Signs Temperature 97.9 F 05/29/25 19:05 Pulse Rate 96 05/29/25 19:05 Respiratory Rate 18 05/29/25 19:05 Blood Pressure 124/79 05/29/25 19:05 Pulse Oximetry (%) 96 05/29/25 19:05 Oxygen Delivery Method Room Air 05/29/25 19:05 Oxygen saturation 96% in room air normal Ear MDM Narrative MDM Narrative:: This is a case of 54-year-old female who came in in the emergency room due to right ear pain for 2 days worsening of the symptoms this patient decided to sought consult here in the emergency room patient denies any ear discharge ear injury tinnitus or dizziness denies any respiratory symptoms physical examination patient is awake alert oriented not in distress nontoxic looking well-hydrated well-nourished lungs sound is clear no crackles no rales no retraction no stridor excellent skin turgor HEENT exam Nose and throat exam is normal bilateral ear canal noted red mild tender no swelling no discharge no foreign body no mastoid tenderness bilaterally tympanic membrane are both retracted bulging red but not perforated patient is in severe pain patient was given Toradol and [place] after 30 minutes patient was reassessed pain was improved from 7 to 1 patient will be discharged as otitis media patient was given Augmentin and ofloxacin drops patient was also given 8 tablets of [place] for pain patient will follow-up with PCP in 2 days she is also informed for any worsening symptoms she will return in the emergency room immediately or call 911 Patient was discharged with comfortable condition walking with stable gait. Patient verbalized no further complains explained diagnosis and answered patient question. Patient is comfortable with the proposed management plan including the need to follow up with his/her primary care physician and any specialist if applicable Discussed patient for any urgent condition or worsening sx, He/She needed to go to emergency room immediately or call 911. Patient acknowledge the responsibility to follow up as instructed and to monitor her/his symptoms. For any persistence of the symptoms for more than 3-5 days return precaution advised. Discussed the result of the test and was given printed discharge instruction Patient data External records reviewed:: [facility] previous records Clinical information provided by:: patient Social determinants that could affect healthcare access:: none Patient has the following chronic illnesses:: None How is presenting disease/condition affected by chronic disease/condition?: no chronic disease Evaluation data The following diagnostics were reviewed and interpreted by me:: other (specify) (None) Lab and/or radiology exams considered but not ordered:: None Interpretation Summary: None Medications / Prescriptions Medications or Prescriptions considered but not ordered:: Given Medication administrations:: Medication Administration History Discontinued Medications Hydrocodone Bitart/Acetaminophen (Hydrocodone/Apap 5/325 Tablet) 1 tab PO X1 ONE Stop: 05/29/25 19:12 Ketorolac Tromethamine (Ketorolac Inj 60 Mg/2 Ml Vial) 30 mg IM X1 ONE Stop: 05/29/25 19:12 Given Consultations Consultation(s) initiated? (list below): No Diagnosis Ear Differential Diagnosis: otitis media, foreign body in ear and ruptured TM Most likely diagnosis given after review of the tests above:: Otitis media both ear Admission Indicated Admission indicated?: not indicated Explain why admission is indicated or not indicated:: Not indicated Admission Request Was there a request for admission?: No Admission Attestation Admission request attestation: Not indicated Disposition Plan Disposition Plan: Discharge Discharge Attestation Discharge Attestation: The patient and all family members were given an opportunity to ask questions and understood the discharge instructions. Discharge instructions specifically effects, indications for sooner follow up or return to the emergency department, and the expected course of current diagnosis. Patient condition: Stable Discharge Plan Plan Patient Disposition: HOME (Self Care) Patient condition on transfer: Stable Prescriptions/Referrals Prescriptions/Med Rec: New amoxicillin-pot clavulanate 500-125 mg tablet 1 tab PO Q12H 10 Days Qty: 20 0RF ofloxacin 0.3 % drops 10 drp otic (ear) QDAY 7 Days Qty: 10 0RF hydrocodone-acetaminophen 5-325 mg tablet 1 tab PO Q6H MDD max 4 tabs per day PRN (Reason: pain) Qty: 8 0RF No Action clozapine 100 mg tablet 200 mg PO HS Patient Comments: TAKE 3 TABLETS BY MOUTH EVERY DAY AT BEDTIME (DME) True Metrix Glucose Test Strip Strip Patient Comments: CHECK BLOOD SUGAR THREE TIMES A DAY clomipramine 75 mg capsule 50 mg PO DAILY albuterol sulfate 90 mcg/actuation Hfa Aerosol Inhaler 2 puff INHALATION QID PRN (Reason: Wheezing) aspirin 81 mg tablet,delayed release (DR/EC) 81 mg PO QDAY Qty: 30 2RF lithium carbonate 300 mg tablet extended release 600 mg PO HS bupropion HCl 100 mg tablet 100 mg PO HS Patient Comments: TAKE 1 TABLET BY MOUTH ONCE A DAY montelukast 10 mg tablet 10 mg PO HS Patient Comments: TAKE 1 TABLET BY MOUTH EVERYDAY AT BEDTIME hydroxyzine HCl 10 mg tablet 10 mg PO BID PRN (Reason: anxiety) Patient Comments: TAKE 1 TABLET BY MOUTH TWICE A DAY NEEDED lisinopril 2.5 mg tablet 2.5 mg PO HS Patient Comments: TAKE 1 TABLET BY MOUTH NIGHTLY AT BEDTIME sertraline 100 mg Tablet 200 mg PO HS insulin glargine [Lantus Solostar U-100 Insulin] 100 unit/mL (3 mL) insulin pen 10 unit SUBCUT HS benzonatate 200 mg capsule 200 mg PO TID PRN (Reason: cough) Patient Comments: TAKE 1 CAPSULE 3 TIMES A DAY BY ORAL ROUTE NEEDED FOR 15 DAYS, FOR COUGH. omeprazole 20 mg capsule,delayed release(DR/EC) 20 mg PO HS Patient Comments: TAKE 1 CAPSULE BY MOUTH EVERY DAY Mounjaro 12.5 mg/0.5 mL pen injector 12.5 mg SUBCUT .WEEKLY Patient Comments: INJECT 12.5MG SUBCUTANEOUSLY WEEKLY Nurtec ODT 75 mg tablet,disintegrating 75 mg PO Q OTHER DAY PRN (Reason: migraine headache) ipratropium-albuterol 0.5 mg-3 mg(2.5 mg base)/3 mL solution for nebulization 3 ml inhalation BID acetylcysteine [NAC] 600 mg capsule 600 mg PO QDAY Breztri Aerosphere 160-9-4.8 mcg/actuation HFA aerosol inhaler 2 inh inhalation BID atorvastatin 40 mg tablet 40 mg PO HS Qty: 60 0RF Problem List Clinical Impression: Otitis media of both ears Patient/Caregiver Discharge Instructions Education Materials: ED Otitis Media Antibiotic ... Additional Instructions: Follow-up with your primary care physician in 2 days for reevaluation worsening symptoms or any emergent concern call 911 or go to the nearest emergency room take your medication as directed finish the course of antibiotic no Q-tips no cotton balls prevent water to enter both ears and no swimming Print Language: Kosovan Stand Alone Forms: Joanne Award Info., Patient Portal Info Letter PA/DRAPERY CUTTER Supervising Physician PA/DRAPERY CUTTER Supervising Physician: Dr Perez
[2025-05-29] MEDS: HYDROcodone/APAP 5/325 TABLET 1 TAB PO (19:24)
[2025-05-29] MEDS: KETOROLAC INJ 60 MG/2 ML VIAL 30 MG IM (19:25)
== END 2025-05-29 19:32 | disposition home or self-care (01) ==
LOC: SERX 19:39
PROVIDERS: Emergency Provider Emergency Medicine
DX: H66.93 Otitis media, unspecified, bilateral (principal)
CPT/HCPCS: 96372; 99283; J1885; A9270

== ENCOUNTER → 2025-06-21 | Outpatient (CLI) | payer MEDICARE, MEDICAID, SELFPAY ==
--- NOTE | 2025-06-21 15:09 | XR_ITS ---
Examination: Knee, right , 3 views Technique: Knee AP, lateral, oblique 3 views Date and time of exam: June 21, 2025 1524 hours INDICATIONS: Knee pain months. FINDINGS: Mild tricompartment osteoarthritis. No fracture or dislocation. No ossified joint bodies IMPRESSION: Mild tricompartment osteoarthritis
== END | disposition home or self-care (01) ==
LOC: CDIM 15:06
PROVIDERS: Referring Provider Nurse Practitioner Family; Visit Provider Nurse Practitioner Family
DX: M17.11 Unilateral primary osteoarthritis, right knee (principal)
CPT/HCPCS: 73562

== ENCOUNTER 2025-06-27 09:59 | Outpatient (RCR) | payer MEDICARE, MEDICAID, SELFPAY | END 2025-07-17 23:59 | disposition home or self-care (01) | LOC: SCTC 09:59 | PROVIDERS: Referring Provider Nurse Practitioner Family; Visit Provider Nurse Practitioner Family | DX: D69.6 Thrombocytopenia, unspecified (principal); K74.60 Unspecified cirrhosis of liver; C73 Malignant neoplasm of thyroid gland; E89.0 Postprocedural hypothyroidism | CPT/HCPCS: 99212; G0463 ==

== ENCOUNTER → 2025-08-01 | Outpatient (CLI) | payer MEDICARE, MEDICAID, SELFPAY ==
--- NOTE | 2025-08-01 13:00 | XR_ITS ---
Examination: Ultrasound soft tissue extremity right forearm TECHNIQUE: Grayscale sonographic images soft tissue right forearm Date and time: August 01, 2025 1244 hours INDICATIONS: Palpable lump right anterior forearm beginning 2 months ago. FINDINGS: Hypoechoic oval mass fairly circumscribed in the anterior right forearm 1.3 x 0.2 x 0.9 cm IMPRESSION: Soft tissue mass in the right anterior forearm at the area concern 1.3 x 0.2 x 0.9 cm Consider MRI for follow-up pre and postcontrast to assess this soft tissue mass, soft tissue tumor included in the differential
== END | disposition home or self-care (01) ==
LOC: CDIM 12:34
PROVIDERS: PCP Nurse Practitioner Family; Referring Provider Nurse Practitioner Family; Visit Provider Nurse Practitioner Family
DX: R22.31 Localized swelling, mass and lump, right upper limb (principal)
CPT/HCPCS: 76882

== ENCOUNTER → 2025-09-30 | Outpatient (CLI) | payer MEDICARE, MEDICAID, SELFPAY ==
--- NOTE | 2025-09-30 08:45 | XR_ITS ---
Examination: Screening digital mammography, bilateral Computer aided detection 3-D breast Tomosynthesis, bilateral Date and time of exam: September 30-50 2 hours, compared to mammograms dating to October 25, 2008 Indication: Screening Technique: Nonmagnified MLO, CC views of the breasts to been obtained, reconstructed from 3-D Tomosynthesis images. R2 computer aided detection program utilized for evaluation of suspicious masses and/or abnormal calcifications. 3-D Tomosynthesis images obtained. Findings: Scattered areas of fibroglandular density. Benign calcifications. No interval suspicious masses Impression: BI-RADS category II: Benign Findings. Recommend 1 year follow-up mammogram.
== END | disposition home or self-care (01) ==
LOC: CDIM 08:34
PROVIDERS: Referring Provider Nurse Practitioner Family; Visit Provider Nurse Practitioner Family
DX: Z12.31 Encounter for screening mammogram for malignant neoplasm of breast (principal); R92.323 Mammographic fibroglandular density, bilateral breasts; R92.1 Mammographic calcification found on diagnostic imaging of breast
CPT/HCPCS: 77063; 77067